=== PATIENT | female | born 1950 | race Hispanic/Latino ===

== ENCOUNTER → 2016-12-09 | Outpatient (CLI) | payer OTHER | LOC: LAB 11:14 | DX: J02.9 Acute pharyngitis, unspecified (principal); H66.003 Acute suppurative otitis media without spontaneous rupture of ear drum, bilateral; J06.9 Acute upper respiratory infection, unspecified | CPT/HCPCS: 99213; G0463 ==

== ENCOUNTER → 2016-12-15 | Outpatient (CLI) | payer OTHER | LOC: MMPC 10:00 | PROVIDERS: ATTEND Physician Assistant | DX: M54.2 Cervicalgia (principal); R51 Headache; M47.812 Spondylosis without myelopathy or radiculopathy, cervical region; M96.0 Pseudarthrosis after fusion or arthrodesis | CPT/HCPCS: 99213; G0463 ==

== ENCOUNTER → 2016-12-22 | Outpatient (CLI) | payer OTHER | LOC: MMPC 10:00 | PROVIDERS: ATTEND Neurological Surgery | DX: M47.813 Spondylosis without myelopathy or radiculopathy, cervicothoracic region (principal); M96.0 Pseudarthrosis after fusion or arthrodesis; M48.06 Spinal stenosis, lumbar region | CPT/HCPCS: 99212; G0463 ==

== ENCOUNTER → 2017-01-06 | Outpatient (CLI) | payer OTHER ==
[2017-01-06 08:48] LABS: HEMATOCRIT 43.3 % (37.0-47.0); HEMOGLOBIN 14.3 g/dL (12.0-16.0); RED BLOOD COUNT 4.93 10^6/uL (4.20-5.40); WHITE BLOOD COUNT 6.14 10^3/uL (4.8-10.8)
[2017-01-06 09:05] LABS: HEMOGLOBIN A1C 10.85 % (4.2-6.0); MEAN BLOOD GLUCOSE (CALC) 275.305 mg/dL
[2017-01-06 09:23] LABS: ASPARTATE AMINO TRANSFERASE 18 IU/L (8-39); BILIRUBIN,TOTAL 0.8 mg/dL (0.3-1.2); BLOOD UREA NITROGEN 28 mg/dL (7-22); BUN/CREATININE RATIO 31.11 (6-20); CALCIUM 10.1 mg/dL (8.7-10.7); CHLORIDE 96 meq/L (98-112); CREATININE 0.9 mg/dL (0.50-1.20); EST GLOMERULAR FILTRATION > 60 (>60 ml/min/1.73m(2)); HDL CHOLESTEROL 36 mg/dL (40-150); POTASSIUM 4.7 meq/L (3.8-5.2); SODIUM 136 meq/L (135-145); TOTAL PROTEIN 7.2 g/dL (6.1-8.0)
[2017-01-06 10:06] LABS: FREE T4 (FREE THYROXINE) 1.44 ng/dL (0.93-1.71)
[2017-01-06 10:15] LABS: BILIRUBIN,URINE NEGATIVE (NEG); GLUCOSE, URINE (UA) 500 mg/dL (NEG); LEUKOCYTE ESTERASE ,URINE NEGATIVE (NEG); NITRATE,URINE NEGATIVE (NEG); OCCULT BLOOD,URINE SMALL (NEG); PROTEIN,URINE 100 mg/dl (NEG); UROBILINOGEN,URINE 0.2 mg/dL (0.2)
[2017-01-06 10:35] LABS: URINE SAMPLE TYPE CLEAN CATCH URINE
[2017-01-06 10:39] LABS: CLARITY,URINE SLIGHTLY CLOUDY (CLEAR); SQUAMOUS EPITHELIAL CELL,UR RARE
[2017-01-06 10:40] LABS: BACTERIA,URINE MODERATE
[2017-01-06 11:00] LABS: GLUCOSE 558 mg/dL (78-110)
[2017-01-06 11:03] LABS: TRIGLYCERIDES 782 mg/dL (44-200)
== END ==
LOC: LAB 08:21
PROVIDERS: ATTEND Family Medicine
DX: E11.9 Type 2 diabetes mellitus without complications (principal); Z79.4 Long term (current) use of insulin; E03.9 Hypothyroidism, unspecified; E78.5 Hyperlipidemia, unspecified; I10 Essential (primary) hypertension; E55.9 Vitamin D deficiency, unspecified; R30.0 Dysuria; N30.00 Acute cystitis without hematuria; G31.84 Mild cognitive impairment of uncertain or unknown etiology; B35.9 Dermatophytosis, unspecified; M54.12 Radiculopathy, cervical region
CPT/HCPCS: 36415; 80053; 80061; 81001; 82306; 83036; 84439; 84443; 85027; 87077; 87088; 87186 ×2; 99213; G0463

== ENCOUNTER → 2017-01-28 | Outpatient (CLI) | payer OTHER | LOC: MMPC 11:15 | PROVIDERS: ATTEND Family Medicine | DX: E11.40 Type 2 diabetes mellitus with diabetic neuropathy, unspecified (principal); I10 Essential (primary) hypertension; E78.5 Hyperlipidemia, unspecified; Z71.3 Dietary counseling and surveillance | CPT/HCPCS: G0108 ==

== ENCOUNTER → 2017-01-29 | Outpatient (CLI) | payer OTHER ==
--- NOTE | 2017-01-31 18:37 | DI ---
XR CXR 2VW PA/LAT,01/29/2017 5:37 PM: Clinical History: Upper respiratory infection. Previous Exam: July 17, 2014 Findings: PA and lateral views of the chest are obtained, and demonstrate some increased interstitial markings in the perihilar region. Postsurgical changes are seen consistent with screw and plate fixation of the cervical spine. There is no infiltrate nor effusion. The cardiomediastinum and bony thorax are unremarkable. Impression: Mild increased interstitial markings most consistent with a viral illness versus reactive airways dis ease.
== END ==
LOC: RAD 17:40
PROVIDERS: ATTEND Physician Assistant
DX: J06.9 Acute upper respiratory infection, unspecified (principal)
CPT/HCPCS: 71020

== ENCOUNTER → 2017-02-09 | Outpatient (CLI) | payer OTHER ==
--- NOTE | 2017-02-09 17:27 | DI ---
MRI LUMBAR SPINE W/O CN,02/09/2017 2:20 PM: Clinical History: Spinal stenosis Previous Exam: None at this facility. Findings: Multiplanar MR images are obtained through the lumbar spine without contrast. Bony alignment is anatomic. No fractures are seen. Marrow signal is preserved. There is a hemangioma noted involving the superior endplate of the 11th thoracic vertebral body. There is some transitional anatomy with partial lumbarization of the first sacral vertebral body with a pseudoarticulation on t he left. Alignment is anatomic and no fractures are seen. There is facet arthropathy noted. The paravertebral soft tissues are unremarkable. There is a subcentimeter simple cyst noted within th e left kidney. The major vascular flow voids are unremarkable. Individual intervertebral disc spaces: L1/2: There is a broad-based disc bulge with some facet and ligamentum flavum hypertrophy without sig nificant stenosis. L2/3: There is disc desiccation and a broad-based disc bulge with some facet and ligamentum flavum hy pertrophy without significant central canal stenosis and only mild left neural foraminal narrowing. L3/4: There is disc desiccation, annular fissuring and a broad-based disc bulge combining with facet and ligamentum flavum hypertrophy to cause moderate central canal stenosis. There is also some epidur al lipomatosis contributing to the moderate central canal stenosis. There is moderate left and mild r ight neuroforaminal narrowing. L4/5: There is disc desiccation, annular fissuring and a large broad-based disc bulge combining with facet and ligamentum flavum hypertrophy to cause severe central canal stenosis with moderate to sever e right and moderate left lateral recess stenosis. L5/S1: There is grade 1 anterolisthesis of L5 on S1 with facet and ligamentum flavum hypertrophy cont ributing to severe right lateral recess stenosis and no significant left lateral recess stenosis. S1/S2: There is partial lumbarization at this level. There is a broad-based disc bulge and some facet hypertrophy. This contributes to moderate to severe right lateral recess stenosis. Impression: Multilevel disease worst at L4/5 where there is severe central canal stenosis with moderate to severe right and moderate left lateral recess stenosis. Severe right lateral recess stenosis at L5/S1. Moderate to severe right lateral recess stenosis at S1/S2
== END ==
LOC: MRI 14:09
PROVIDERS: ATTEND Physician Assistant
DX: M48.06 Spinal stenosis, lumbar region (principal); M51.16 Intervertebral disc disorders with radiculopathy, lumbar region; M48.07 Spinal stenosis, lumbosacral region
CPT/HCPCS: 72148

== ENCOUNTER → 2017-02-10 | Outpatient (CLI) | payer OTHER | LOC: MMPC 09:00 | PROVIDERS: ATTEND Family Medicine | DX: E11.9 Type 2 diabetes mellitus without complications (principal); F32.9 Major depressive disorder, single episode, unspecified; M54.12 Radiculopathy, cervical region; G60.8 Other hereditary and idiopathic neuropathies; B37.0 Candidal stomatitis ==

== ENCOUNTER 2017-02-20 23:28 | Emergency (ER) | payer OTHER ==
[2017-02-20] MEDS ORDERED: NORMAL SALINE 10 ML SYRINGE FLUSH IVP PRN (23:42)
--- NOTE | 2017-02-20 23:48 | PDOC ---
General Adult HPI - General Chief Complaint: General Medical Stated Complaint: HIGH GLUOSE Date Seen by Provider: 02/20/17 Time Seen by Provider: 23:46 Source: POSITIVE: Patient, Other (family) Exam Limitations: POSITIVE: No limitations Nurse's Notes Reviewed & Considered: Yes - History of Present Illness Initial Comment: And is a 66-year-old female who presents to the emergency department with hyperglycemia and confusion. History is obtained from patient and family. They report that she's had high blood sugars over the last week. Up into the 500s. Patient takes a long-acting insulin twice a day and then short acting insulin once a day. Patient indicates she has had some urinary frequency. Denies any urgency or dysuria. Patient has had intermittent exertional dyspnea but she is uncertain how long that has been present. Patient denies any fernando abdominal pain. Patient denies chest pain. She has had a mild cough. Patient for treatment treated for some type of upper respiratory tract infection with antibiotics recently within the last 1-2 weeks. No diarrhea. Patient denies missing any doses of her insulin. Family indicated that earlier today she thought she was in [place] and seems to be confused. Have you received a tetanus shot in the past 10 years?: Unknown - Patient Home Medications Home Medications: Home Medications Aspirin 81 mg ORAL QD tab 07/16/11 Levothyroxine Sodium 1 tab PO DAILY #90 tab 03/02/16 Duloxetine HCl [Cymbalta] 120 mg ORAL QD #60 capsule 06/01/16 Esomeprazole Magnesium [Nexium] 1 tab-cap PO DAILY #30 cap 06/01/16 Ezetimibe [Zetia] 10 mg PO DAILY #30 tab 06/01/16 Metformin HCl 1 tab PO BID #60 tab 06/01/16 Potassium Chloride 1 cap PO QD #30 cap 06/01/16 Insulin Aspart [Novolog] 18 unit SQ Q AC #1 vial 10/01/16 Fluticasone Propionate [Flonase Allergy Relief] 2 spr ANTHONY DAILY spr 11/10/16 Oxycodone HCl/Acetaminophen [Oxycodone-Acetaminophen 5-325] 1 tab PO Q4-6H #120 tab 11/10/16 Cetirizine HCl [Zyrtec] 10 mg ORAL QD #30 tab 12/07/16 [place], Insulin Disposable [Pen Needle] 1 each MC QID #1 box 12/07/16 Cyclobenzaprine HCl 1 tab PO TID #60 tab 12/15/16 Ergocalciferol (Vitamin D2) [Vitamin D2] 1 cap PO 2XW #16 cap 01/06/17 Insulin Glargine SoloStar Inj [Lantus Solostar Inj] 80 unit SQ QHS #1 box Pravastatin Sodium [Pravachol] 1 tab PO DAILY #90 tab 01/06/17 Blood Sugar Diagnostic [Freestyle Lite Strips] 1 each IN TID #100 strip Albuterol Sulfate [Proair Hfa] 1 - 2 puff INH Q4-6H #1 inhaler 01/29/17 Fluconazole [Diflucan] 100 mg PO DAILY #5 tab 02/10/17 Gabapentin 1 cap PO TID #90 cap 02/10/17 Oxycodone HCl/Acetaminophen [Oxycodone-Acetaminophen 5-325] 1 tab PO Q6H #120 tab 02/10/17 - Patient Allergies Allergies/Adverse Reactions: Allergies Allergy/AdvReac Type Severity Reaction Status Date / Time codeine AdvReac NAUSEA Unverified 01/06/17 13:37 Past Medical History - heen HEENT History: Dentures/Partials Additional HEENT History: Wears trifocals, wears upper dentures, lower dentures need to be refitted. Cardiovascular History: Hypertension, Hyperlipidemia Additional Cardiovasular History: SOB-ON OXYGEN AT NIGHT AND SOMETIMES IN DAYTIME WHEN TIRED Respiratory History: Asthma, Home Oxygen Use, Home CPAP Use Additional Respiratory History: OXYGEN AT NIGHT WITH CPAP Gastrointestinal History: GERD Genitourinary History: Recurrent UTI Endocrine History: Type 2 Diabetes (insulin), Hypothyroidism Musculoskeletal History: Denies History, Back Pain Prosthesis or Implant: Yes ([facility] BILAT) Additional Musculoskeletal History: neck surgery 07-12-14 Neurological History: TIA, Frequent Headaches Additional Neurological History: reports chronic peripheral neuropathy in feet. SALAZAR AFTER NECK SURGERY Blood Disorders: Denies History Psychiatric History: Depression, Anxiety Disorders History of Sexually Transmitted Diseases: No Cancer History: Denies History History of MDRO: No History of Other Communicable Diseases: No Alcohol Use: None Substance Use Type: None Previous Surgical History: Yes Type / Date of Surgery: BILAT EYE SURGERY RETNIA , DENTAL EXTRACTION, PARTIAL HYSTERECTOMY, TONSILLECTOMY, APPENDECTOMY, CHOLECYSTECTOMY, CERVICAL FUSION 06/28 , LEFT CTR, BILAT CATARACTS, LEFT GANGLION CYST HAND, Anesthesia Reactions: No Malignant Hyperthermia: No Significant Family History: Asthma, Heart disease, Cancer, Diabetes, Lung disease Past Medical History Reviewed: Reviewed - No Changes ROS - Limitations ROS Limitations: No Limitations Constitution: REPORTS: Denies Symptoms Cardiovascular: REPORTS: Denies Cardiac Symptoms Respiratory: REPORTS: Cough Non Productive, Shortness Of Breath Neurological: REPORTS: Confusion Gastrointestinal: DENIES: Abdominal Pain Endocrine: REPORTS: Denies Symptoms Musculoskeletal: REPORTS: Other (Chronic back pain) Genitourinary: REPORTS: Other (Frequency). DENIES: Dysuria, Hematuria Eyes: REPORTS: Denies Symptoms ENT: REPORTS: Denies Symptoms Skin: REPORTS: Denies Skin Symptoms Psychiatric: POSITIVE: Denies Psych Symptoms General Adult Exam - General Appearance General Appearance: POSITIVE: Alert, Cooperative, No Acute Distress, No Evidence of Trauma - HEENT HEENT: POSITIVE: Head Inspection Nml, Eyes Inspection Nml, Oral/Dental Inspect. Nml, PERRL - Pupils Pupil Size: 4 mm: Bilateral - Neck Neck: POSITIVE: Normal Inspection. NEGATIVE: Lymphadenopathy - Respiratory Respiratory: POSITIVE: No Respiratory Distress, Breath Sounds Normal, Chest Non- Tender. NEGATIVE: Wheezes, Rales, Rhonchi - Cardiovascular Cardiovascular: POSITIVE: Regular Rate & Rhythm, No Murmur, No Gallop - Abdomen Additional Abdominal Details: Minimal diffuse tenderness to palpation. No focality. Decreased bowel sounds. No distention. - Back Back: POSITIVE: Normal Inspection - Skin Skin: POSITIVE: Normal Color, Warm, Dry - Extremities Extremity: Non-Tender: (All Extremities), Normal ROM: (All Extremities), Normal Inspection: (All Extremities) Additional Extremities Details: No edema. Palpable DP and posterior tibial pulses. - Neurological / Psychological Neurological: POSITIVE: Affect Apporpriate, Motor Normal, Sensation Normal General Adult Progress - Results Reviewed by me Xrays/CTs/US Reviewed by me: Yes Lab Results Reviewed: Yes Lab Results:: Laboratory Results 02/20/17 02/20/17 02/21/17 Range/Units 23:42 23:56 01:10 WBC 6.36 (4.8-10.8) 10^3/uL RBC 4.44 (4.20-5.40) 10^6/uL Hgb 12.9 (12.0-16.0) g/dL Hct 39.4 (37.0-47.0) % MCV 88.7 (81-99) FL MCH 29.1 (27-31) PG MCHC 32.7 L (33-37) g/dL RDW Std Deviation 42.8 (39-50) fL RDW Coeff of Nicole 13.4 (11.5-14.5) % Plt Count 268 (140-350) 10*3/uL MPV 9.7 (7.4-12.2) FL Immature Gran % (Auto) 0.3 (0-5) % Neut % (Auto) 59.5 (50-80) % Lymph % (Auto) 28.8 (10-50) % [place] % (Auto) 6.6 (5-15) % Eos % (Auto) 4.2 (0-8) % Baso % (Auto) 0.6 (0-1) % Immature Gran # (Auto) 0.02 10*3/UL Neut # (Auto) 3.78 10*3/UL Lymph # (Auto) 1.83 10*3/uL [place] # (Auto) 0.42 (0.3-0.8) 10*3/UL Eos # (Auto) 0.27 10*3/UL Baso # (Auto) 0.04 10*3/UL WBC Morphology Comment Normal morphology (NORM) Plt Morphology Comment Normal morphology (NORM) RBC Morph Comment Normal morphology (NORM) VBG pH 7.43 H (7.32-7.42) VBG pCO2 38.8 L (45-55) mmHg VBG HCO3 25.8 (22-26) mmol/L VBG Base Excess -2 (-2-2) MMOL/L Sodium 135 (135-145) meq/L Potassium 4.5 (3.8-5.2) meq/L Chloride 98 (98-112) meq/L Carbon Dioxide 26 (23-33) meq/L Anion Gap 11 (5-20) BUN 25 H (7-22) mg/dL Creatinine 0.8 (0.50-1.20) mg/dL Estimated GFR > 60 (>60 ml/min/1.73m(2)) BUN/Creatinine Ratio 31.25 H (6-20) Glucose 393 H (78-110) mg/dL Calculated Osmolality 299.0 H (267-292) mOsm/kg Calcium 9.1 (8.7-10.7) mg/dL Total Bilirubin 0.4 (0.3-1.2) mg/dL AST 17 (8-39) IU/L ALT 18 (9-52) IU/L Alkaline Phosphatase 112 (38-126) IU/L Troponin I < 0.012 (< 0.040) ng/mL Total Protein 6.8 (6.1-8.0) g/dL Albumin 3.6 (3.5-4.8) g/dL Globulin 3.2 (2.50-4.10) g/dL Albumin/Globulin Ratio 1.10 L (1.3-2.0) mg/g Lipase 172 (23-300) IU/L Ur Collection Type Clean catch urine Urine Color Yellow Urine Clarity Cloudy (CLEAR) Urine pH 6.0 (5.0-8.5) Ur Specific [place] 1.010 (1.005-1.030) Urine Protein 30 (NEG) mg/dl Urine Glucose (UA) 500 (NEG) mg/dL Urine Ketones Negative (NEG) Urine Occult Blood Trace-intact (NEG) Urine Nitrate Negative (NEG) Urine Bilirubin Negative (NEG) Urine Urobilinogen 0.2 (0.2) mg/dL Ur Leukocyte Esterase Negative (NEG) Urine RBC 1-3 (NONE) /hpf Urine WBC 1-3 (NONE) Ur Squamous Epith Cells Rare (NONE) Ur Renal Epithelial Cell None (NONE) Urine Crystals None Urine Bacteria Rare (NONE) Urine Casts None Urine Mucus None (NONE) Urine Trichomonas None (NONE) Urine Yeast None (NONE) Acetone Level Negative (NEGATIVE) EKG Interpreted/Reviewed By Me:: Yes (sinus rhythm. Old Q waves noted. No acute ST changes) - Patient's Progress MDM / ED Course: And is a 66-year-old female who presents to the emergency department with hyperglycemia and confusion. Her vital signs are unremarkable and examination him strict well-appearing female in no acute distress. Differential diagnosis includes Acute Hyperglycemia, Hypoglycemia Ketosis, DKA, Urinary Tract Infection , ACS, Pneumonia. Patient's chemistry panel does demonstrate hyperglycemia. There is no evidence of acute acidosis. Her acetone is negative. Urinalysis is without evidence of infection. EKG and troponin are negative making ACS less likely. Chest x-ray does not demonstrate any significant acute findings. She does have Borderline cardiomegaly. Patient was given a 5 unit subcutaneous injection of insulin and a bolus of normal saline. Reevaluation she is feeling much better and her sugars were trending down. Patient's hemoglobin A1c was elevated suggesting she is not having good glycemic control at home. Currently patient does not appear to be confused. I did discuss with patient whether she prefers to be admitted to the hospital for observation or if she felt comfortable going home. Patient does feel comfortable going home and requests to be discharged at this time. Patient Care Time - Estimated PCT Patient Care Time (In Minutes): 45 Vital Signs - VS Reviewed Vital Signs Reviewed: Yes Discharge Clinical Impression: Hyperglycemia without ketosis Discharge Disposition: Discharged to Home Condition: Good Patient Instructions Given at Discharge: Type 2 Diabetes in Adults (ED) Additional Instructions: Thank you for coming to the emergency department. Please follow-up with your primary care provider for reevaluation of your insulin regimen. Please return to the emergency department for any worsening symptoms.
[2017-02-21 00:08] LABS: BASOPHILS # (AUTO) 0.04 10*3/UL; BASOPHILS % (AUTO) 0.6 % (0-1); EOSINOPHILS # (AUTO) 0.27 10*3/UL; EOSINOPHILS % (AUTO) 4.2 % (0-8); HEMATOCRIT 39.4 % (37.0-47.0); HEMOGLOBIN 12.9 g/dL (12.0-16.0); LYMPHOCYTES # (AUTO) 1.83 10*3/uL; MEAN CORPUSCULAR HEMOGLOBIN 29.1 PG (27-31); MEAN CORPUSCULAR HGB CONC 32.7 g/dL (33-37); MEAN CORPUSCULAR VOLUME 88.7 FL (81-99); MEAN PLATELET VOLUME 9.7 FL (7.4-12.2); MONOCYTES # (AUTO) 0.42 10*3/UL (0.3-0.8); MONOCYTES % (AUTO) 6.6 % (5-15); NEUTROPHILS # (AUTO) 3.78 10*3/UL; NEUTROPHILS % (AUTO) 59.5 % (50-80); RED BLOOD COUNT 4.44 10^6/uL (4.20-5.40)
[2017-02-21 00:09] LABS: BLOOD UREA NITROGEN 25 mg/dL (7-22); BUN/CREATININE RATIO 31.25 (6-20); CALCIUM 9.1 mg/dL (8.7-10.7); EST GLOMERULAR FILTRATION > 60 (>60 ml/min/1.73m(2)); LIPASE 172 IU/L (23-300); SERUM ALBUMIN 3.6 g/dL (3.5-4.8)
[2017-02-21 00:10] LABS: PLATELET MORPHOLOGY COMMENT NORMAL MORPHOLOGY (NORM); RBC MORPHOLOGY COMMENT NORMAL MORPHOLOGY (NORM); WBC MORPHOLOGY COMMENT NORMAL MORPHOLOGY (NORM)
[2017-02-21 00:12] LABS: VENOUS PCO2 38.8 mmHg (45-55); VENOUS PH 7.43 (7.32-7.42)
[2017-02-21] MEDS ORDERED: Sodium Chloride 0.9% 1,000 ML PRIMARY IV ONE (00:29)
[2017-02-21] MEDS ORDERED: Insulin Lispro Flexpen 300 UNIT/3 ML INSULN.PEN SUBCUT ONE (00:29)
--- NOTE | 2017-02-21 00:45 | DI ---
HISTORY: Hypoxia. History of upper respiratory infection. TECHNIQUE: A single portable frontal view of the chest is submitted. COMPARISON: Comparison is made to a PA/Lat chest radiograph dated 01/29/2017. FINDINGS: The lungs are clear with no effusion, consolidation, or pneumothorax. Heart size is at the upper limits of normal with mildly increased pulmonary vasculature that may repr esent technique versus early pulmonary edema in the setting of CHF. Degenerative changes of the right AC joint and spine are noted. Surgical hardware projects over the c ervicothoracic junction. IMPRESSION: 1. Borderline cardiomegaly with mildly increased pulmonary vasculature. The findings may represent technique versus early pulmonary edema in the setting of congestive heart failure. 2. No effusion, consolidation, or pneumothorax.
[2017-02-21 01:41] LABS: BILIRUBIN,URINE NEGATIVE (NEG); COLOR,URINE YELLOW; GLUCOSE, URINE (UA) 500 mg/dL (NEG); NITRATE,URINE NEGATIVE (NEG); OCCULT BLOOD,URINE Trace-intact (NEG); PROTEIN,URINE 30 mg/dl (NEG); UROBILINOGEN,URINE 0.2 mg/dL (0.2)
[2017-02-21 01:48] LABS: CLARITY,URINE CLOUDY (CLEAR)
[2017-02-21 01:49] LABS: BACTERIA,URINE RARE; SQUAMOUS EPITHELIAL CELL,UR RARE; URINE SAMPLE TYPE CLEAN CATCH URINE
[2017-02-21 05:21] VITALS: RESP 18; TEMP 97.6
--- NOTE | 2017-02-21 06:06 | EKG ---
[address] [address] Measurements Intervals [place] Rate: 89 P: 53 NC: 147 QRS: -15 QRSD: 87 T: 80 QT: 353 QTc: 400 Interpretive Statements SINUS RHYTHM POSSIBLE INFERIOR MYOCARDIAL INFARCTION [40+ ms Q WAVE AND/OR ST/T ABNORMALITY IN II/aVF], PROBABLY OLD Compared to ECG 07/09/2016 12:09:13 Myocardial infarct finding now present Electronically Signed On 02-22-17 08:58:29 MDT by Tanmay Bernal MD [id number]
== END 2017-02-21 02:10 | disposition home or self-care (01) ==
LOC: ER 23:28
DX: E11.65 Type 2 diabetes mellitus with hyperglycemia (principal); Z79.4 Long term (current) use of insulin; R35.0 Frequency of micturition; R05 Cough; R06.02 Shortness of breath
CPT/HCPCS: 36415; 71010; 80053; 81001; 82009; 82010; 82803; 83690; 84484; 85025; 93005; 93010; 96360; 96372; 99283 ×2; J1815; J7030

== ENCOUNTER → 2017-02-25 | Outpatient (CLI) | payer OTHER | LOC: MMPC 09:00 | PROVIDERS: ATTEND Family Medicine | DX: E11.40 Type 2 diabetes mellitus with diabetic neuropathy, unspecified (principal); I10 Essential (primary) hypertension; E78.5 Hyperlipidemia, unspecified; Z71.3 Dietary counseling and surveillance | CPT/HCPCS: G0108 ==

== ENCOUNTER → 2017-03-12 | Outpatient (CLI) | payer OTHER | LOC: MMPC 09:00 | PROVIDERS: ATTEND Family Medicine | DX: M54.12 Radiculopathy, cervical region (principal); G60.8 Other hereditary and idiopathic neuropathies; F32.9 Major depressive disorder, single episode, unspecified; E11.9 Type 2 diabetes mellitus without complications | CPT/HCPCS: 99214; G0463 ==

== ENCOUNTER → 2017-03-25 | Outpatient (CLI) | payer OTHER | LOC: MMPC 09:00 | PROVIDERS: ATTEND Family Medicine | DX: E11.319 Type 2 diabetes mellitus with unspecified diabetic retinopathy without macular edema (principal); I10 Essential (primary) hypertension; Z71.3 Dietary counseling and surveillance | CPT/HCPCS: G0108 ==

== ENCOUNTER → 2017-04-05 | Outpatient (CLI) | payer OTHER | LOC: MMPC 09:00 | PROVIDERS: ATTEND Family Medicine | DX: E11.9 Type 2 diabetes mellitus without complications (principal); K59.03 Drug induced constipation; I10 Essential (primary) hypertension; M54.12 Radiculopathy, cervical region | CPT/HCPCS: 99214; G0463 ==

== ENCOUNTER → 2017-04-21 | Outpatient (CLI) | payer OTHER ==
[2017-04-21 10:00] LABS: HEMOGLOBIN A1C 7.29 % (4.2-6.0)
[2017-04-21 10:03] LABS: CALCIUM 9.5 mg/dL (8.7-10.7); CHOL/HDL RATIO 6.05 RATIO (0-4.0); LDL CHOLESTEROL,CALCULATED 124.8 mg/dL; SERUM ALBUMIN 4.1 g/dL (3.5-4.8)
[2017-04-21 10:50] LABS: FREE T4 (FREE THYROXINE) 1.22 ng/dL (0.93-1.71)
== END ==
LOC: LAB 09:39
PROVIDERS: ATTEND Family Medicine
DX: E11.9 Type 2 diabetes mellitus without complications (principal); Z79.4 Long term (current) use of insulin; I10 Essential (primary) hypertension; E03.9 Hypothyroidism, unspecified; E78.5 Hyperlipidemia, unspecified; G60.8 Other hereditary and idiopathic neuropathies; J30.9 Allergic rhinitis, unspecified; M54.12 Radiculopathy, cervical region; R41.89 Other symptoms and signs involving cognitive functions and awareness; E55.9 Vitamin D deficiency, unspecified; Z86.73 Personal history of transient ischemic attack (TIA), and cerebral infarction without residual deficits
CPT/HCPCS: 36415; 80053; 80061; 82306; 83036; 84439; 84443

== ENCOUNTER → 2017-05-05 | Outpatient (CLI) | payer OTHER | LOC: MMPC 09:00 | PROVIDERS: ATTEND Family Medicine | DX: E11.9 Type 2 diabetes mellitus without complications (principal); R10.12 Left upper quadrant pain; R10.11 Right upper quadrant pain; E03.9 Hypothyroidism, unspecified; E55.9 Vitamin D deficiency, unspecified; L82.1 Other seborrheic keratosis | CPT/HCPCS: 99214; G0463 ==

== ENCOUNTER → 2017-05-13 | Outpatient (CLI) | payer OTHER ==
--- NOTE | 2017-05-13 14:33 | DI ---
CT ABD W/CN AND PELVIS W/CN,05/13/2017 12:51 PM: Clinical History: Left upper quadrant pain. Previous Exam: None at this facility. Findings: Multiple helically acquired CT images are obtained through the abdomen and pelvis following the intra venous administration of contrast. The urinary bladder is unremarkable. There is no free fluid. The appendix is normal. The kidneys, adrenals, liver, spleen and pancreas are unremarkable. There is a moderate amount of stool seen throughout the colon. The stomach is decompressed and not well evaluated, but grossly normal. There are a few subcentimeter hypodensities within the kidneys which are too small to characterize. Anterior abdominal wall is unremarkable. The subcutaneous fat is also unremarkable. Impression: No acute intra-abdominal pathology.
== END ==
LOC: CT 12:44
PROVIDERS: ATTEND Family Medicine
DX: R10.12 Left upper quadrant pain (principal)
CPT/HCPCS: 74177

== ENCOUNTER → 2017-05-14 | Outpatient (CLI) | payer OTHER ==
[2017-05-14 13:52] LABS: BLOOD UREA NITROGEN 23 mg/dL (7-22); BUN/CREATININE RATIO 25.55 (6-20); CALCIUM 9.7 mg/dL (8.7-10.7); EST GLOMERULAR FILTRATION > 60 (>60 ml/min/1.73m(2))
== END ==
LOC: LAB 13:29
PROVIDERS: ATTEND Family Medicine
DX: E11.9 Type 2 diabetes mellitus without complications (principal); Z79.4 Long term (current) use of insulin
CPT/HCPCS: 36415; 80048

== ENCOUNTER → 2017-06-07 | Outpatient (CLI) | payer OTHER | LOC: MMPC 09:00 | PROVIDERS: ATTEND Family Medicine | DX: B37.89 Other sites of candidiasis (principal); E11.9 Type 2 diabetes mellitus without complications; G31.84 Mild cognitive impairment of uncertain or unknown etiology; I10 Essential (primary) hypertension; F32.9 Major depressive disorder, single episode, unspecified; M54.12 Radiculopathy, cervical region; B35.9 Dermatophytosis, unspecified | CPT/HCPCS: 99213; G0463 ==

== ENCOUNTER → 2017-06-15 | Outpatient (CLI) | payer OTHER ==
--- NOTE | 2017-06-15 16:30 | DI ---
CT CERVICAL SPINE W/O CONTRAST,06/15/2017 3:26 PM: Clinical History: Status post fall Previous Exam: March 17, 2016 Findings: Multiple helically acquired CT images are obtained through the cervical spine without contrast. Sagit hollie and coronal reconstructions are obtained, and demonstrate postsurgical changes consistent with an terior screw and plate fixation of C4-C7. There is also interbody fusion. This is unchanged from the prior exam. There are uncovertebral joint osteophytes noted and there are some mild loss of intervertebral disc h eight. No fracture is identified. The lung apices are clear. Impression: Diffuse degenerative changes of the cervical spine without fractures.
--- NOTE | 2017-06-15 16:30 | DI ---
CT HEAD W/O CONTRAST,06/15/2017 3:26 PM: Clinical History: Fall. Previous Exam: June 29, 2015 Findings: Multiple helically acquired CT images are obtained through the brain without contrast, and demonstrat e normal, symmetric ventricles and other CSF containing spaces. There is no mass, hemorrhage or midli ne shift. Impression: No acute intracranial pathology.
--- NOTE | 2017-06-15 16:30 | DI ---
XR L-SPINE 2-3 VW,06/15/2017 3:28 PM: Clinical History: Status post fall Previous Exam: February 20, 2016 Findings: 3 views of the lumbar spine are obtained, and demonstrate grade 1 anterolisthesis of L4 on L5. There is mild loss of intervertebral disc height. Endplate osteophytes are noted. Facet hypertrophy is also noted. Patient is status post cholecystectomy on the right. A large amount of dried stool is seen throughout the colon. A few phleboliths are also noted. Impression: Diffuse degenerative changes of the lumbar spine without fractures.
== END ==
LOC: RAD 15:21
PROVIDERS: ATTEND Physician Assistant
DX: M54.2 Cervicalgia (principal); M54.5 Low back pain; R51 Headache; M47.816 Spondylosis without myelopathy or radiculopathy, lumbar region; M47.812 Spondylosis without myelopathy or radiculopathy, cervical region; W07.XXXA Fall from chair, initial encounter
CPT/HCPCS: 70450; 72100; 72125

== ENCOUNTER → 2017-06-22 | Outpatient (CLI) | payer OTHER ==
--- NOTE | 2017-06-22 12:26 | DI ---
XR RIBS W/PA CXR MIN 3VW,06/22/2017 10:40 AM: Clinical History: Left-sided chest wall pain Previous Exam: February 21, 2017 Findings: Multiple views of the left ribs are obtained, and demonstrate normal anatomic alignment. There is no evidence of pneumothorax. There is no pleural effusion. Degenerative changes of the thoracic spine ar e seen. There is screw and plate fixation of the cervical spine. Mild degenerative hypertrophy of the acromioclavicular joint are seen. Impression: No fracture.
[2017-06-22 12:46] LABS: FREE T4 (FREE THYROXINE) 1.09 ng/dL (0.93-1.71)
--- NOTE | 2017-06-22 13:27 | DI ---
CT ABD W/CN AND PELVIS W/CN,06/22/2017 11:47 AM: Clinical History: Abdominal pain. Previous Exam: May 13, 2017 Findings: Multiple helically acquired CT images are obtained through the abdomen and pelvis following the intra venous administration of contrast, and demonstrate clear lung bases. Degenerative changes of the lumbar spine are seen. The liver, spleen, adrenals, pancreas and kidneys are unremarkable. Patient is status post cholecystectomy. There is no free air nor free fluid. A few peripheral vascular calcifications are noted. There are some centimeter hypodensities within th e kidneys too small to characterize. Facet arthropathy is also noted. Moderate stool seen throughout the entire colon. Impression: No acute intra-abdominal pathology.
== END ==
LOC: MOB RAD 10:42
PROVIDERS: ATTEND Physician Assistant
DX: R07.89 Other chest pain (principal); R10.12 Left upper quadrant pain; R10.13 Epigastric pain; E03.9 Hypothyroidism, unspecified; E55.9 Vitamin D deficiency, unspecified; M79.1 Myalgia; W10.9XXA Fall (on) (from) unspecified stairs and steps, initial encounter
CPT/HCPCS: 36415; 71101; 74177; 82306; 82565; 84439; 84443; 84520

== ENCOUNTER 2018-07-29 16:27 | Inpatient (IN) ==
[2018-07-29 15:32] LABS: VENOUS PH 7.42 (7.32-7.42)
[2018-07-29 15:45] LABS: BASOPHILS # (AUTO) 0.03 10*3/UL; BASOPHILS % (AUTO) 0.5 % (0-1); EOSINOPHILS # (AUTO) 0.33 10*3/UL; EOSINOPHILS % (AUTO) 5.6 % (0-8); Hematocrit [HCT] 40.2 % (37.0-47.0); Hemoglobin [HGB] 13.5 g/dL (12.0-16.0); LYMPHOCYTES # (AUTO) 1.59 10*3/uL; MEAN CORPUSCULAR HEMOGLOBIN 29.2 PG (27-31); MEAN CORPUSCULAR HGB CONC 33.6 g/dL (33-37); MEAN CORPUSCULAR VOLUME 86.8 FL (81-99); MEAN PLATELET VOLUME 9.9 FL (7.4-12.2); MONOCYTES # (AUTO) 0.39 10*3/UL (0.3-0.8); MONOCYTES % (AUTO) 6.6 % (5-15); NEUTROPHILS # (AUTO) 3.54 10*3/UL; NEUTROPHILS % (AUTO) 60.1 % (50-80); RED BLOOD COUNT 4.63 10^6/uL (4.20-5.40)
[2018-07-29 15:48] LABS: PLATELET MORPHOLOGY COMMENT NORMAL MORPHOLOGY (NORM); RBC MORPHOLOGY COMMENT NORMAL MORPHOLOGY (NORM); WBC MORPHOLOGY COMMENT NORMAL MORPHOLOGY (NORM)
[2018-07-29 15:59] LABS: BLOOD UREA NITROGEN 41 mg/dL (7-22); BUN/CREATININE RATIO 37.27 (6-20); SERUM ALBUMIN 3.9 g/dL (3.5-4.8)
[~2018-07-29 16:27] MED LIST: Sodium Chloride 0.9% 1,000 ML PRIMARY IV ONE
--- NOTE | 2018-07-29 17:24 | DI ---
CT ANGIOGRAM OF THE CHEST, 07/29/2018 4:12 PM : Clinical History: Dyspnea. Cough. Elevated D-dimer test. Previous Exam: 07/15/2014. Scans are performed from the base of the neck to the lower lung bases with IV contrast. 60 mL of Isov ue 370 was injected IV. Proprietary automated bolus tracking software was not used to verify the leodan ng of the injection. The base of the neck and thoracic inlet are normal. There are no abnormal axillary, supraclavicular, mediastinal, or hilar nodes. The heart is normal. There are a few scattered calcifications in the LAD and left circumflex artery. The pulmonary arteries are normal. There is no pulmonary arterial hypert ension. There is no evidence of pulmonary embolism or pulmonary infarction. There is discoid atelecta sis in the right middle lobe. No acute infiltrate or effusion is present. The visualized portions of the adrenal glands, spleen, pancreas, and liver are normal. READIN. Normal CTA of the chest. There are no pulmonary emboli or pulmonary infarcts. 2. There is no acute infiltrate or effusion.
[2018-07-29] MEDS ORDERED: cefTRIAXone Inj 1 GM in Sodium Chloride 0.9% 100 ML IV ONE (18:14)
[2018-07-29 18:28] LABS: URINE SAMPLE TYPE CLEAN CATCH URINE
[2018-07-29 18:29] LABS: BACTERIA,URINE RARE
--- NOTE | 2018-07-29 18:41 | PDOC ---
General Adult HPI - General Chief Complaint: Chest Pain Stated Complaint: chest tightness Date Seen by Provider: 07/29/18 Time Seen by Provider: 17:05 Source: POSITIVE: Patient, EMS Exam Limitations: POSITIVE: No limitations Nurse's Notes Reviewed & Considered: Yes EMS Report Reviewed & Considered: Verbal - History of Present Illness Initial Comment: The patient is a 68-year-old female who presents to the emergency department by ambulance from the walk-in clinic with complaints of productive cough, confusion and general malaise. She reports that for the past month or so she's had increased urinary frequency and dysuria. For the past several days she's had increase in productive cough which is productive of greenish colored sputum. She also has some increase shortness of breath and tightness in her chest especially with coughing. She had presented initially to the walk-in clinic where her oxygen saturations were in the 80s on room air. She was placed on O2 per nasal cannula. EKG done in the clinic shows no acute ST segment changes or T-wave inversions and is a sinus rhythm. The patient is unaware that she has had any fever. She does have general malaise and chills. She is also diabetic and her bedside blood sugar was above 350. She states that she does wear oxygen and CPAP at night however during the day she does not typically require oxygen. She does have an inhaler at home which she uses infrequently. Have you received a tetanus shot in the past 10 years?: Yes - Patient Home Medications Home Medications: Home Medications Cetirizine HCl [Zyrtec] 10 mg ORAL QD #30 tab 12/07/16 Pen Needle, Diabetic [Pen Needle] 1 [facility] QID #1 box 12/07/16 Fluticasone Propionate [Flonase Allergy Relief] 2 spr ANTHONY DAILY #1 spr Cholecalciferol (Vitamin D3) [Vitamin D3] 1 cap PO QD #30 cap 06/07/17 Oxycodone HCl/Acetaminophen [Oxycodone-Acetaminophen 5-325] 1 tab PO Q6H #120 tab 06/07/17 aspirin 81 mg tablet,delayed release 81 mg PO QDAY tab 08/03/17 cyclobenzaprine 10 mg tablet 10 mg PO TID #60 tab 08/11/17 albuterol sulfate HFA 90 mcg/actuation aerosol inhaler 2 puff INH Q4-6H PRN #2 device 09/20/17 polyethylene glycol 3350 17 gram oral powder packet 17 g PO QDAY #30 ea insulin aspart U-100 100 unit/mL subcutaneous solution 5 unit SUBCUT TIDWM #1 vial 01/28/18 blood sugar diagnostic strips 1 strip MISCELLANEOUS TID #100 strip 02/01/18 pravastatin 80 mg tablet 1 tab PO DAILY #90 tab 04/04/18 dulaglutide 0.75 mg/0.5 mL subcutaneous pen injector 0.75 mg SUBCUT WEEKLY #2 ml 04/13/18 levothyroxine 200 mcg tablet 200 mcg PO QDAY #30 tab 04/13/18 lisinopril 10 mg tablet 10 mg PO QDAY #30 tab 04/13/18 metronidazole 0.75 % topical gel 1 applic TOPICAL BID #45 g 04/13/18 nystatin 100,000 unit/gram topical powder 1 applic TOPICAL TID #1 ea 04/13/18 metoprolol tartrate 25 mg tablet 25 mg PO BID 05/06/18 ergocalciferol (vitamin D2) 50,000 unit capsule 1 unit PO 2xw #16 unit 06/06/18 Tresiba FlexTouch U-100 insulin 100 unit/mL (3 mL) subcutaneous pen 45 unit SUBCUT BID #15 ml NS 06/24/18 oxycodone-acetaminophen 5 mg-325 mg tablet 1 tab PO Q4-6H PRN #120 tab 07/06/18 pregabalin 150 mg capsule 150 mg PO TID #90 cap 07/06/18 esomeprazole magnesium 40 mg capsule,delayed release 1 tab-cap PO DAILY #30 cap 07/14/18 ezetimibe 10 mg tablet 10 mg PO DAILY #30 tab 07/14/18 duloxetine 60 mg capsule,delayed release 120 mg ORAL QD #60 cap 07/15/18 fluticasone 50 mcg/actuation nasal spray,suspension 2 spr ANTHONY DAILY #1 spr - Patient Allergies Allergies/Adverse Reactions: Allergies 3 Allergy/AdvReac Type Severity Reaction Status Date / Time codeine AdvReac NAUSEA Verified 07/29/18 14:16 Past Medical History - heen HEENT History: Dentures/Partials Additional HEENT History: Wears trifocals, wears upper dentures, lower dentures need to be refitted. Cardiovascular History: Hypertension, Hyperlipidemia Additional Cardiovasular History: SOB-ON OXYGEN AT NIGHT AND SOMETIMES IN DAYTIME WHEN TIRED Respiratory History: Asthma, Home Oxygen Use, Home CPAP Use Additional Respiratory History: OXYGEN AT NIGHT WITH CPAP Gastrointestinal History: GERD Genitourinary History: Recurrent UTI Endocrine History: Type 2 Diabetes (insulin), Hypothyroidism Musculoskeletal History: Denies History, Back Pain Prosthesis or Implant: Yes ([facility] BILAT) Additional Musculoskeletal History: neck surgery 07-12-14 Neurological History: TIA, Frequent Headaches Additional Neurological History: reports chronic peripheral neuropathy in feet. SALAZAR AFTER NECK SURGERY Blood Disorders: Denies History Psychiatric History: Depression, Anxiety Disorders History of Sexually Transmitted Diseases: No Female Reproductive History: Hysterectomy Additional Female Reproductive History: TOTAL HYSTERECTOMY- 1974 LMP: 1974 Obstetrical History: Denies History Cancer History: Denies History In Past Year Been Physically Harmed or Verbally Threatened: No History of MDRO: No History of Other Communicable Diseases: No Tobacco Use: Never Smoker Alcohol Use: None In the Past 12 Months, Have Used or Abuse Any Substance: None Previous Surgical History: Yes Type / Date of Surgery: BILAT EYE SURGERY RETNIA , DENTAL EXTRACTION, PARTIAL HYSTERECTOMY, TONSILLECTOMY, APPENDECTOMY, CHOLECYSTECTOMY, CERVICAL FUSION 06/28 , LEFT CTR, BILAT CATARACTS, LEFT GANGLION CYST HAND, Anesthesia Reactions: No Malignant Hyperthermia: No Significant Family History: Asthma, Heart disease, Cancer, Diabetes, Lung disease Past Medical History Reviewed: Reviewed - No Changes ROS - Limitations ROS Limitations: No Limitations Constitution: REPORTS: Chills. DENIES: Fever Cardiovascular: REPORTS: Chest Pain (Chest tightness especially with coughing). DENIES: Edema Respiratory: REPORTS: Cough Productive (Greenish phlegm), Shortness Of Breath Neurological: REPORTS: Confusion. DENIES: Headache (She did have some headache earlier although none currently), Numbness, Weakness Gastrointestinal: REPORTS: Nausea. DENIES: Abdominal Pain, Vomitting, Diarrhea Endocrine: REPORTS: Fatigue Musculoskeletal: DENIES: Lower Extremity Swelling Genitourinary: REPORTS: Dysuria, Other (Frequency) Eyes: REPORTS: Denies Symptoms ENT: REPORTS: Denies Symptoms Skin: DENIES: Rash General Adult Exam - General Appearance General Appearance: POSITIVE: Alert, Cooperative, No Acute Distress - HEENT HEENT: POSITIVE: Head Inspection Nml, Eyes Inspection Nml, Ears Inspection Nml, Pharynx Inspect. Nml, PERRL, EOMI - Neck Neck: POSITIVE: Normal Inspection. NEGATIVE: Lymphadenopathy - Respiratory Respiratory: POSITIVE: No Respiratory Distress, Breath Sounds Normal - Cardiovascular Cardiovascular: POSITIVE: Regular Rate & Rhythm, No Murmur Peripheral Pulses: Dorsalis-pedis (R): 2+, Dorsalis-pedis (L): 2+ - Abdomen Abdomen: Soft: (All Quadrants), Denies Tenderness: (All Quadrants), No Distention: (All Quadrants) - Skin Skin: POSITIVE: Normal Color, No Rash - Extremities Extremity: Normal ROM: (All Extremities), Normal Inspection: (All Extremities) General Adult Progress - Results Reviewed by me Xrays/CTs/US Reviewed by me: Yes Discussed with Radiologist: Yes Radiology Findings: CT head shows no acute findings per radiologist. CT of the chest shows discoid atelectasis in the right lung base with no evidence of PE or any other acute findings per radiologist. Chest x-ray showed no acute findings. Lab Results Reviewed by Me: Yes Lab Results:: Laboratory Results 3 07/29/18 07/29/18 07/29/18 14:40 15:26 15:26 WBC 5.90 RBC 4.63 Hgb 13.5 Hct 40.2 MCV 86.8 MCH 29.2 MCHC 33.6 RDW Std Deviation 41.9 RDW Coeff of Nicole 13.5 Plt Count 314 MPV 9.9 Immature Gran % (Auto) 0.3 Neut % (Auto) 60.1 Lymph % (Auto) 26.9 Dawson % (Auto) 6.6 Eos % (Auto) 5.6 Baso % (Auto) 0.5 Immature Gran # (Auto) 0.02 Neut # (Auto) 3.54 Lymph # (Auto) 1.59 Dawson # (Auto) 0.39 Eos # (Auto) 0.33 Baso # (Auto) 0.03 WBC Morphology Comment Normal morphology Plt Morphology Comment Normal morphology RBC Morph Comment Normal morphology D-Dimer 0.70 H VBG pH VBG pCO2 VBG HCO3 VBG Base Excess Sodium Potassium Chloride Carbon Dioxide Anion Gap BUN Creatinine Estimated GFR BUN/Creatinine Ratio Glucose Calculated Osmolality Lactic Acid Calcium Magnesium Total Bilirubin AST ALT Alkaline Phosphatase Troponin I C-Reactive Protein NT-Pro-B Natriuret Pep Total Protein Albumin Globulin Albumin/Globulin Ratio TSH Free T4 Ur Collection Type Clean catch urine Urine RBC None Urine WBC None Ur Squamous Epith Cells None Ur Renal Epithelial Cell None Urine Crystals None Urine Bacteria Rare Urine Casts None Urine Mucus None Urine Trichomonas None Urine Yeast None Serum Alcohol 3 07/29/18 07/29/18 07/29/18 15:26 15:26 15:26 WBC RBC Hgb Hct MCV MCH MCHC RDW Std Deviation RDW Coeff of Nicole Plt Count MPV Immature Gran % (Auto) Neut % (Auto) Lymph % (Auto) Dawson % (Auto) Eos % (Auto) Baso % (Auto) Immature Gran # (Auto) Neut # (Auto) Lymph # (Auto) Dawson # (Auto) Eos # (Auto) Baso # (Auto) WBC Morphology Comment Plt Morphology Comment RBC Morph Comment D-Dimer VBG pH VBG pCO2 VBG HCO3 VBG Base Excess Sodium 133 L Potassium 4.6 Chloride 96 L Carbon Dioxide 30 Anion Gap 7 BUN 41 H Creatinine 1.1 Estimated GFR 49 BUN/Creatinine Ratio 37.27 H Glucose 391 H Calculated Osmolality 301.0 H Lactic Acid 1.6 Calcium 10.3 Magnesium 1.5 L Total Bilirubin 0.4 AST 21 ALT 39 Alkaline Phosphatase 143 H Troponin I < 0.012 C-Reactive Protein 1.3 H NT-Pro-B Natriuret Pep 203 H Total Protein 7.9 Albumin 3.9 Globulin 3.9 Albumin/Globulin Ratio 1.00 L TSH Free T4 Ur Collection Type Urine RBC Urine WBC Ur Squamous Epith Cells Ur Renal Epithelial Cell Urine Crystals Urine Bacteria Urine Casts Urine Mucus Urine Trichomonas Urine Yeast Serum Alcohol < 10 3 07/29/18 07/29/18 15:26 15:27 WBC RBC Hgb Hct MCV MCH MCHC RDW Std Deviation RDW Coeff of Nicole Plt Count MPV Immature Gran % (Auto) Neut % (Auto) Lymph % (Auto) Dawson % (Auto) Eos % (Auto) Baso % (Auto) Immature Gran # (Auto) Neut # (Auto) Lymph # (Auto) Dawson # (Auto) Eos # (Auto) Baso # (Auto) WBC Morphology Comment Plt Morphology Comment RBC Morph Comment D-Dimer VBG pH 7.42 VBG pCO2 49 VBG HCO3 32 H VBG Base Excess 7 H Sodium Potassium Chloride Carbon Dioxide Anion Gap BUN Creatinine Estimated GFR BUN/Creatinine Ratio Glucose Calculated Osmolality Lactic Acid Calcium Magnesium Total Bilirubin AST ALT Alkaline Phosphatase Troponin I C-Reactive Protein NT-Pro-B Natriuret Pep Total Protein Albumin Globulin Albumin/Globulin Ratio TSH 6.13 H Free T4 1.15 Ur Collection Type Urine RBC Urine WBC Ur Squamous Epith Cells Ur Renal Epithelial Cell Urine Crystals Urine Bacteria Urine Casts Urine Mucus Urine Trichomonas Urine Yeast Serum Alcohol CBC and BMP: 07/29/18 15:26 07/29/18 15:26 EKG Interpreted/Reviewed By Me:: Yes EKG Interpretation:: POSITIVE: Normal Sinus Rhythm, Normal Rate, Normal QRS, Normal ST/T, Other (EKG had been done in the clinic) - Patient's Progress MDM / ED Course: The patient was hypoxic with oxygen saturations in the low 80s on room air on presentation to the clinic. She was placed on O2 per nasal cannula with improvement in her oxygen saturations. She is afebrile here however she does present with productive cough and chest tightness. Her initial EKG shows no acute ST segment or T-wave changes. Chest x-ray is unremarkable. Head CT is normal per radiologist. The patient's blood sugar was elevated at 390 and venous blood gas showed a normal pH. Urinalysis showed sugar with no evidence of infection. Initial troponin was negative. D-dimer was slightly elevated and subsequent CTA of the chest showed some discoid atelectasis in the right lung base with no evidence of PE or any other acute abnormalities per radiologist. The patient likely has exacerbation of COPD versus early pneumonia. Blood cultures and lactate have been drawn with initial IV start. Patient was started on Rocephin and Zithromax. She also received 1 L bolus of normal saline. Dr. Castellon has agreed to admit the patient for further treatment. The patient is in agreement with this plan. - Consult Counseled: POSITIVE: Patient, RE: Lab Results, RE: Radiology Results, RE: DX, RE : Need for F/U Patient Care Time - Estimated PCT Patient Care Time (In Minutes): 35 Vital Signs - Recent Vital Signs Vital Signs: Vital Signs (Last 8 hours) Temp Pulse Resp BP Pulse Ox 07/29/18 17:01 98.1 F 100 20 209/154 95 - VS Reviewed Vital Signs Reviewed: Yes Discharge Clinical Impression: Confusion, Hypoxia, COPD exacerbation, Hyperglycemia, Dehydration Discharge Disposition: Admit to Inpatient Condition: Fair Follow Up With: SUELLEN SNYDER [Primary Care Provider] - Date Decision to Admit to Inpatient: 07/29/18 Time Decision to Admit to Inpatient: 18:15
--- NOTE | 2018-07-29 19:05 | DI ---
CT HEAD SCAN WITHOUT IV CONTRAST, 07/29/2018 3:20 PM : Clinical History: Confusion. Previous Exam: 06/15/2017. Scans are obtained from the foramen magnum to the vertex without IV contrast. The 4th, 3rd, and lateral ventricles are of normal size, shape, position, and contour for the patient 's age. There are no abnormal areas of increased or decreased density. Specifically, there is no evid ence of an acute hemorrhagic or bland infarct. There is moderate cerebellar and cerebral atrophy. The re are no extracerebral mantles or shift of the midline structures. Bone window evaluation is normal. The paranasal sinuses are normal. READIN. There is no acute hemorrhagic or bland infarct. 2. Moderate cerebellar and cerebral atrophy. 3. There has been no significant interval change.
--- NOTE | 2018-07-29 19:11 | DI ---
AP CHEST X-RAY, 07/29/2018 3:20 PM : Clinical History: Cough. Hypoxia. Previous Exam: 06/22/2017. On this view, the patient took a shallow inspiration. There is no acute soft tissue or bony abnormali ty. Heart size is normal. Lungs are clear. Mediastinal structures are normal. There are no pulmonary nodules. Reading: Normal chest x-ray for the shallow degree of inspiration.
[2018-07-29 19:36] LABS: AMPHETAMINE SCREEN NEGATIVE (NEG); CANNABINOID SCREEN,URINE NEGATIVE (NEG); COCAINE SCREEN NEGATIVE (NEG); METHADONE URINE SCREEN NEGATIVE (NEG); METHAMPHETAMINES SCREEN,URINE NEGATIVE (NEG); OPIATE SCREEN,URINE NEGATIVE (NEG); URINE SPECIFIC GRAVITY - MAN 1.025
--- NOTE | 2018-07-29 20:30 | PDOC ---
HPI - History of Present Illness Date of Service: 07/29/18 Time of Service: 20:00 Chief Complaint: Cough with green phlegm production, tightness of the chest a few days duration History of Present Illness: This is a 68 years old female with medical history significant for history of diabetes, hypertension, hypercholesterolemia, coronary artery disease and history of sleep apnea who was sent to the ER because of history of cough, green phlegm production and weakness. in Addition she mentioned shortness of breath and also at times report tightness. She said the tightness in the chest is when she do things. She would sit down after that then it goes away. There is no pain in her arm. In addition at that time she said that she had shortness of breath when she coughs. When she went to the urgent care clinic her sats were 88% and she was sent from there to the ER. She complained also from vomiting 2 days ago. She said she's not been checking her blood sugar as she used to to check it 4 times a day while this week she checked it may be twice. She did not give a clear reason why except that she forgets. She uses oxygen only at night. She came into the ER a CT of the chest was negative except she has some atelectasis. No PE. Blood culture was taken and the was admitted. She did say that she had the an angiogram done 2 months ago, she said that she need intervention but was not done until she had eye surgery and this was also not done. Not sure whether her understanding is accurate. Past Medical History Medical History: 1. Diabetes on insulin. 2. Hypertension. 3. Hypercholesterolemia. 4. GERD. 5. Hypothyroidism Surgical History: 1. Hysterectomy. 2. Cholecystectomy. 3. Appendectomy. 4. Anterior cervical fusion last year. 5. Tonsillectomy Family History: Reviewed an Not Pertinent Past Social History: She does not smoke, does not drink, no drugs. Lives here with her son. Tobacco Use: Never Smoker Do you dip or chew tobacco: No In the Past 12 Months, Have Used or Abuse Any of the Following Substance: None Alcohol Use: None Medication / Allergies Home Medications: Home Medications 3 Medication Instructions Recorded Confirmed Type Cetirizine HCl [Zyrtec] 10 mg ORAL QD #30 tab 12/07/16 07/29/18 Rx Pen Needle, Diabetic [Pen Needle] 1 [facility] QID #1 box 12/07/16 07/29/18 Rx Fluticasone Propionate [Flonase 2 spr ANTHONY DAILY #1 spr 04/05/17 Clinic Allergy Relief] Cholecalciferol (Vitamin D3) 1 cap PO QD #30 cap 06/07/17 07/29/18 Rx [Vitamin D3] Oxycodone HCl/Acetaminophen 1 tab PO Q6H #120 tab 06/07/17 Clinic [Oxycodone-Acetaminophen 5-325] aspirin 81 mg tablet,delayed 81 mg PO QDAY tab 08/03/17 07/29/18 History release cyclobenzaprine 10 mg tablet 10 mg PO TID #60 tab 08/11/17 07/29/18 Rx albuterol sulfate HFA 90 2 puff INH Q4-6H PRN #2 device 09/20/17 07/29/18 Rx mcg/actuation aerosol inhaler polyethylene glycol 3350 17 gram 17 g PO QDAY #30 ea 12/15/17 07/29/18 Rx oral powder packet insulin aspart U-100 100 unit/mL 5 unit SUBCUT TIDWM #1 vial 01/28/18 07/29/18 Rx subcutaneous solution blood sugar diagnostic strips 1 strip MISCELLANEOUS TID #100 02/01/18 07/29/18 Rx strip pravastatin 80 mg tablet 1 tab PO DAILY #90 tab 04/04/18 07/29/18 Rx dulaglutide 0.75 mg/0.5 mL 0.75 mg SUBCUT WEEKLY #2 ml 04/13/18 07/29/18 Rx subcutaneous pen injector levothyroxine 200 mcg tablet 200 mcg PO QDAY #30 tab 04/13/18 07/29/18 Rx lisinopril 10 mg tablet 10 mg PO QDAY #30 tab 04/13/18 07/29/18 Rx metronidazole 0.75 % topical gel 1 applic TOPICAL BID #45 g 04/13/18 07/29/18 Rx nystatin 100,000 unit/gram topical 1 applic TOPICAL TID #1 ea 04/13/18 07/29/18 Rx powder metoprolol tartrate 25 mg tablet 25 mg PO BID 05/06/18 07/29/18 History linaclotide 290 mcg capsule #4 Samples 05/30/18 07/29/18 Sample ergocalciferol (vitamin D2) 50,000 1 unit PO 2xw #16 unit 06/06/18 07/29/18 Rx unit capsule Tresiba FlexTouch U-100 insulin 45 unit SUBCUT BID #15 ml NS 06/24/18 07/29/18 Rx 100 unit/mL (3 mL) subcutaneous pen oxycodone-acetaminophen 5 mg-325 1 tab PO Q4-6H PRN #120 tab 07/06/18 07/29/18 Rx mg tablet pregabalin 150 mg capsule 150 mg PO TID #90 cap 07/06/18 07/29/18 Rx esomeprazole magnesium 40 mg 1 tab-cap PO DAILY #30 cap 07/14/18 07/29/18 Rx capsule,delayed release ezetimibe 10 mg tablet 10 mg PO DAILY #30 tab 07/14/18 07/29/18 Rx duloxetine 60 mg capsule,delayed 120 mg ORAL QD #60 cap 07/15/18 07/29/18 Rx release fluticasone 50 mcg/actuation nasal 2 spr ANTHONY DAILY #1 spr 07/15/18 07/29/18 Clinic spray,suspension Allergies/Adverse Reactions: Allergies 3 Allergy/AdvReac Type Severity Reaction Status Date / Time codeine AdvReac NAUSEA Verified 07/30/18 07:32 Exam - Vitals Vital Signs: Vital Signs Temperature 97.4 F Temperature Source Temporal Artery Scan Pulse Rate [Pulse Oximeter 100 Bilateral Radial] Pulse Rate 91 Respiratory Rate 20 Blood Pressure [Left Arm] 209/154 Blood Pressure 166/104 Pulse Ox 96 Oxygen Delivery Method Room Air Height 5 ft 6 in Weight 190 lb - General General Appearance: No Acute Distress, Cooperative, Obese - Head Head Exam: Normal Inspection - Eye Eye Exam: POSITIVE: Normal Appearance - ENT ENT Exam: POSITIVE: Normal Exam - Neck Neck Exam: Normal Inspection - Respiratory Respiratory Exam: POSITIVE: Clear to Auscultation - Bilaterally - Cardiovascular Cardiovascular Exam: POSITIVE: RRR - GI/Abdominal GI/Abdominal Exam: POSITIVE: Normal Bowel Sounds, Non Tender, Non Distended, No Organomegaly - Rectal Rectal Exam: POSITIVE: Deferred - External Exam: POSITIVE: Deferred - Extremities Extremities Exam: POSITIVE: Normal Inspection - Back Back Exam: POSITIVE: Normal Inspection - Neurological Neurological Exam: POSITIVE: Alert, Oriented x 3, CN II-XII Intact, Speech Intact / Clear, Moves All Extremities Equally Results - Labs CBC and BMP: 07/29/18 15:26 07/30/18 04:40 - Imaging Status: Report Reviewed by Me (CT chest 1. Normal CTA of the chest. There are no pulmonary emboli or pulmonary infarcts. 2. There is no acute infiltrate or effusion. CT head 1. There is no acute hemorrhagic or bland infarct. 2. Moderate cerebellar and cerebral atrophy. 3. There has been no significant interval change. Chest X ray Normal chest x-ray for the shallow degree of inspiration.) Assessment and Plan - Patient Problems (1) COPD exacerbation Current Visit: Yes Status: Acute Comment: She may have some bronchitis, she got antibiotics I think we'll continue with antibiotics. Will put her on breathing treatment. I think we'll hold off on steroid. At times based on her description the shortness of breath that she is describing seems to be related to her lung condition but at another time seems to be independent I think we'll try to get the records from [place] and see whether there is cardiac etiology for her symptoms. Code(s): J44.1 - Chronic obstructive pulmonary disease with (acute) exacerbation (2) Dehydration Current Visit: Yes Status: Acute Comment: The blood sugar is elevated we'll put her on sliding scale, will give some fluid. Code(s): E86.0 - Dehydration (3) Essential hypertension Current Visit: No Status: Acute Onset Date: 10/14/12 Comment: We'll see what her blood pressure number put her on lisinopril and metoprolol and adjust as needed Code(s): I10 - Essential (primary) hypertension (4) Diabetes Current Visit: Yes Status: Acute Comment: Continue with her previous medication in addition to sliding scale. Code(s): E11.9 - Type 2 diabetes mellitus without complications
[2018-07-29] MEDS ORDERED: LIDOCAINE W/ SODIUM BICARB 0.5 ML SYR SUBD PRN (20:38)
[2018-07-29] MEDS: Lactated Ringers 1,000 ML PRIMARY IV SCH (21:12)
[2018-07-29] MEDS: Insulin Lispro Flexpen 300 UNIT/3 ML INSULN.PEN SUBCUT SCH (21:15)
[2018-07-29] MEDS: Pregabalin Cap 150mg capsule PO SCH (21:39)
[2018-07-29] MEDS: Metoprolol TARTRATE Tab 25 MG TAB PO SCH (21:39)
[2018-07-29] MEDS: INSULIN DEGLUDEC 45 UNIT SUBCUT SCH (21:39)
[2018-07-30] MEDS: LEVALBUTEROL HCL 1.25 MG/3 ML NEB SCH ×4 (01:22→19:20)
[2018-07-30] MEDS: LEVOTHYROXINE 100 MCG TABLET PO SCH (04:50)
[2018-07-30] MEDS: Lactated Ringers 1,000 ML PRIMARY IV SCH ×2 (04:50→14:21)
[2018-07-30] MEDS: Insulin Lispro Flexpen 300 UNIT/3 ML INSULN.PEN SUBCUT SCH ×4 (07:29→21:04)
[2018-07-30] MEDS: Esomeprazole DR 20mg Capsule PO SCH (09:37)
[2018-07-30] MEDS: EZETIMIBE 10 MG TABLET PO SCH (09:37)
[2018-07-30] MEDS: Pregabalin Cap 150mg capsule PO SCH ×2 (09:37→14:37)
[2018-07-30] MEDS: Metoprolol TARTRATE Tab 25 MG TAB PO SCH ×2 (09:37→20:57)
[2018-07-30] MEDS: ASPIRIN EC 81 MG TABLET PO SCH (09:37)
[2018-07-30] MEDS: FLUTICASONE PROPIONATE 16 GRAM (120 SPRAYS / BOTTLE) ENOS SCH (09:45)
[2018-07-30] MEDS: INSULIN DEGLUDEC 45 UNIT SUBCUT SCH ×3 (09:45→22:32)
[2018-07-30] MEDS: LISINOPRIL 10 MG TABLET PO SCH (09:45)
--- NOTE | 2018-07-30 10:39 | PDOC(PROG) ---
Date of Service: 07/30/18 Time of Service: 10:45 Interval History: Subjective Patient feels somewhat better compared to when she came in. The cuff seem to be improved. Minimal phlegm. She is denying tightness in the chest today. No vomiting. She said she feels still weak. Objective : Data - Labs CBC and BMP: 07/29/18 15:26 07/30/18 04:40 Objective : Exam - General General Appearance: No Acute Distress, Cooperative, Obese - Head Head Exam: Normal Inspection - Eye Eye Exam: Normal Appearance - ENT ENT Exam: Normal Exam - Neck Neck Exam: Normal Inspection - Respiratory Additional Respiratory Exam Details: Decreased air entry a few crackles at the right base. - Cardiovascular Cardiovascular Exam: RRR - GI/Abdominal GI/Abdominal Exam: Normal Bowel Sounds, Non Tender, Non Distended, Soft, No Organomegaly - Rectal Rectal Exam: Deferred - External Exam: Deferred - Extremities Extremities Exam: Normal Inspection - Back Back Exam: Normal Inspection - Neurological Neurological Exam: Alert, Oriented x 3, CN II-XII Intact, No Facial Droop, Speech Intact / Clear, Moves All Extremities Equally - Psychiatric Psychiatric Exam: Flat Affect - Integumentary Integumentary Exam: Normal Color Assessment and Plan - Patient Problems (1) COPD exacerbation Current Visit: Yes Status: Acute Comment: I think we'll continue with antibiotics. Continue breathing treatment. She is weak will ask PT and OT to work with her. Regarding the tightness in the chest I did obtain records from [place] and that showed 2 vessels disease between 70-80% 1 and nondominant RCA and one in up to his marginal was a small vessel. I did speak with Dr. Lee and he think more of medical treatment so we put her on long-acting nitrate. He suggested increasing the metoprolol if she tolerate that and she need to follow up with them as an outpatient. Code(s): J44.1 - Chronic obstructive pulmonary disease with (acute) exacerbation (2) Dehydration Current Visit: Yes Status: Acute Comment: Continue IV fluid for another day at the lower grade though. Code(s): E86.0 - Dehydration (3) Essential hypertension Current Visit: No Status: Acute Onset Date: 10/14/12 Comment: Same medications Code(s): I10 - Essential (primary) hypertension (4) Diabetes Current Visit: Yes Status: Acute Comment: Continue same medications Code(s): E11.9 - Type 2 diabetes mellitus without complications
[2018-07-30] MEDS: ISOSORBIDE MONONITRATE 30 MG SR 24H TABLET PO SCH (11:33)
[2018-07-30] MEDS: ONDANSETRON 4 MG/2 ML VIAL IVP PRN ×2 (14:21→19:46)
[2018-07-30] MEDS: ACETAMINOPHEN 325 MG TABLET PO PRN ×2 (14:36→19:47)
[2018-07-30] MEDS: cefTRIAXone Inj 1 GM in Sodium Chloride 0.9% 100 ML IV SCH (17:01)
[2018-07-30] MEDS: Pravastatin 80mg Tab PO SCH (20:57)
[2018-07-30] MEDS: Insulin Glargine SoloStar Inj 100 UNIT/ML INSULN.PEN SUBCUT SCH (22:33)
[2018-07-31] MEDS ORDERED: Magnesium Sulfate 2gm (Premix) 2 GM/50 ML BAG IV ONE (00:03)
[2018-07-31] MEDS: LEVALBUTEROL HCL 1.25 MG/3 ML NEB SCH ×4 (05:19→19:01)
[2018-07-31] MEDS: LEVOTHYROXINE 100 MCG TABLET PO SCH (05:29)
[2018-07-31] MEDS: POLYETHYLENE GLYCOL 3350 17 GM POWDER PO PRN (05:34)
[2018-07-31] MEDS: Insulin Lispro Flexpen 300 UNIT/3 ML INSULN.PEN SUBCUT SCH ×4 (07:16→20:50)
[2018-07-31] MEDS: MAGNESIUM OXIDE 400 MG TABLET PO SCH (07:16)
[2018-07-31] MEDS: Esomeprazole DR 20mg Capsule PO SCH (07:16)
[2018-07-31] MEDS: FLUTICASONE PROPIONATE 16 GRAM (120 SPRAYS / BOTTLE) ENOS SCH (08:33)
[2018-07-31] MEDS: Insulin Glargine SoloStar Inj 100 UNIT/ML INSULN.PEN SUBCUT SCH ×2 (08:34→20:49)
[2018-07-31] MEDS: Metoprolol TARTRATE Tab 25 MG TAB PO SCH ×2 (08:34→20:49)
[2018-07-31] MEDS: EZETIMIBE 10 MG TABLET PO SCH (08:34)
[2018-07-31] MEDS: DULOXETINE 60 MG CAPSULE PO SCH (08:34)
[2018-07-31] MEDS: ISOSORBIDE MONONITRATE 30 MG SR 24H TABLET PO SCH (08:35)
[2018-07-31] MEDS: LISINOPRIL 10 MG TABLET PO SCH (08:35)
[2018-07-31] MEDS: ASPIRIN EC 81 MG TABLET PO SCH (08:35)
--- NOTE | 2018-07-31 09:07 | PDOC(PROG) ---
Date of Service: 07/31/18 Time of Service: 09:10 Interval History: Subjective She said she does not have tightness in her chest. She is still feeling weak. She did feel some shortness of breath she said as she walked back from the shower to her room. No chest pain. No vomiting. Objective : Data - Labs CBC and BMP: 07/29/18 15:26 07/31/18 05:45 Objective : Exam - General General Appearance: No Acute Distress, Obese - Head Head Exam: Normal Inspection - Eye Eye Exam: Normal Appearance - ENT ENT Exam: Normal Exam - Neck Neck Exam: Normal Inspection - Respiratory Additional Respiratory Exam Details: Decreased air entry with few crackles at the bases. - Cardiovascular Cardiovascular Exam: RRR - GI/Abdominal GI/Abdominal Exam: Normal Bowel Sounds, Non Tender, Non Distended, Soft, No Organomegaly - Rectal Rectal Exam: Deferred - External Exam: Deferred Exam: Deferred - Extremities Extremities Exam: Normal Inspection - Back Back Exam: Normal Inspection - Neurological Neurological Exam: Alert, Oriented x 3, Normal Gait, CN II-XII Intact, Speech Intact / Clear - Psychiatric Psychiatric Exam: Normal Affect Assessment and Plan - Patient Problems (1) COPD exacerbation Current Visit: Yes Status: Acute Comment: Continue bronchodilator treatment and continue antibiotics for another day IV. Code(s): J44.1 - Chronic obstructive pulmonary disease with (acute) exacerbation (2) Dehydration Current Visit: Yes Status: Acute Comment: This is resolved. Code(s): E86.0 - Dehydration (3) Essential hypertension Current Visit: No Status: Acute Onset Date: 10/14/12 Comment: Continue metoprolol and lisinopril. Code(s): I10 - Essential (primary) hypertension (4) Diabetes Current Visit: Yes Status: Acute Comment: We switch her to Lantus as we don't have trseba, continue sliding scale. Code(s): E11.9 - Type 2 diabetes mellitus without complications (5) Weakness Current Visit: Yes Status: Acute Comment: She still feel weak will continue PT and OT. Code(s): R53.1 - Weakness
[2018-07-31] MEDS: ACETAMINOPHEN 325 MG TABLET PO PRN (11:50)
--- NOTE | 2018-07-31 12:44 | OT.PROG ---
Progress Note Progress Note: S: pt reports pain in neck, knees, shoulders, forearm and hand. O: pt was seen in her room and after toilet transfer with nursing completed transfer to [facility] and was left on 2 liters of o2. She completed 10 min on Nu step to increase activity tolerance. She transferred to mat table where she completed UE exericse with 2# wrist weights in shoulder flex, abd, bicep flex and shoulder press. She also completed prop input through R Ue by wb'ing fro 2- 3 min. She then complete LE exercises with 2# on ankles in marching, LAQ, and minute drills. She also completed 2# box x10. She then transferred approx 20 ft before sitting in [facility] and being returned to her room. She was left upright in chair with call light within reach. A: pt participated well today. She reports weak Right side but demonstrated ability to complete exercises well with that UE. P: Continue per POC.
[2018-07-31] MEDS: cefTRIAXone Inj 1 GM in Sodium Chloride 0.9% 100 ML IV SCH (17:23)
[2018-07-31] MEDS: Pravastatin 80mg Tab PO SCH (20:49)
[2018-08-01] MEDS: LEVALBUTEROL HCL 1.25 MG/3 ML NEB SCH ×4 (01:14→19:27)
[2018-08-01] MEDS: Insulin Lispro Flexpen 300 UNIT/3 ML INSULN.PEN SUBCUT SCH ×4 (07:23→21:06)
[2018-08-01] MEDS: MAGNESIUM OXIDE 400 MG TABLET PO SCH (07:35)
[2018-08-01] MEDS: POLYETHYLENE GLYCOL 3350 17 GM POWDER PO PRN (07:40)
[2018-08-01] MEDS: LEVOTHYROXINE 100 MCG TABLET PO SCH (07:40)
--- NOTE | 2018-08-01 08:29 | PDOC(PROG) ---
Date of Service: 08/01/18 Time of Service: 08:00 Interval History: Subjective She said she is still feeling weak but getting stronger though. Cough is less than before. Said she had some shortness of breath yesterday but not today. No tightness in the chest today. Objective : Data - Labs CBC and BMP: 07/29/18 15:26 07/31/18 05:45 Objective : Exam - General General Appearance: No Acute Distress, Cooperative, Obese - Head Head Exam: Normal Inspection - Eye Eye Exam: Normal Appearance - ENT ENT Exam: Normal Exam - Neck Neck Exam: Normal Inspection - Respiratory Additional Respiratory Exam Details: Decreased air entry with few crackles at the bases. - Cardiovascular Cardiovascular Exam: RRR - GI/Abdominal GI/Abdominal Exam: Normal Bowel Sounds, Non Tender, Non Distended, Soft, No Organomegaly - Rectal Rectal Exam: Deferred - External Exam: Deferred Exam: Deferred - Extremities Extremities Exam: Normal Inspection - Back Back Exam: Normal Inspection - Neurological Neurological Exam: Alert, Oriented x 3, CN II-XII Intact, No Facial Droop, Speech Intact / Clear, Moves All Extremities Equally - Psychiatric Psychiatric Exam: Normal Affect Assessment and Plan - Patient Problems (1) COPD exacerbation Current Visit: Yes Status: Acute Comment: Continue antibiotics and bronchodilator. I did speak with the strategic planner about maybe switching her to swing bed to continue physical therapy as she is still weak. Code(s): J44.1 - Chronic obstructive pulmonary disease with (acute) exacerbation (2) Dehydration Current Visit: Yes Status: Acute Comment: This is resolved Code(s): E86.0 - Dehydration (3) Essential hypertension Current Visit: No Status: Acute Onset Date: 10/14/12 Comment: Continue same medications. Code(s): I10 - Essential (primary) hypertension (4) Diabetes Current Visit: Yes Status: Acute Comment: Continue same dosage of insulin Code(s): E11.9 - Type 2 diabetes mellitus without complications (5) Weakness Current Visit: Yes Status: Acute Comment: Continue PT and OT Code(s): R53.1 - Weakness (6) Coronary artery disease Current Visit: Yes Status: Acute Comment: She is on aspirin, beta vandana and Imdur. She is denying tightness in the chest now I think we'll keep the same dosage. She need follow-up with the cardiology when she leaves. Code(s): I25.10 - Atherosclerotic heart disease of [place] coronary artery without angina pectoris
[2018-08-01] MEDS ORDERED: ENOXAPARIN SODIUM 40 MG/0.4 ML SYRINGE SUBCUT SCH (09:00)
[2018-08-01] MEDS: EZETIMIBE 10 MG TABLET PO SCH (09:04)
[2018-08-01] MEDS: DULOXETINE 60 MG CAPSULE PO SCH (09:04)
[2018-08-01] MEDS: Metoprolol TARTRATE Tab 25 MG TAB PO SCH ×2 (09:05→21:02)
[2018-08-01] MEDS: ASPIRIN EC 81 MG TABLET PO SCH (09:05)
[2018-08-01] MEDS: ISOSORBIDE MONONITRATE 30 MG SR 24H TABLET PO SCH (09:05)
[2018-08-01] MEDS: Insulin Glargine SoloStar Inj 100 UNIT/ML INSULN.PEN SUBCUT SCH ×2 (09:05→21:06)
[2018-08-01] MEDS: Esomeprazole DR 20mg Capsule PO SCH (09:05)
[2018-08-01] MEDS: LISINOPRIL 10 MG TABLET PO SCH (09:05)
[2018-08-01] MEDS: FLUTICASONE PROPIONATE 16 GRAM (120 SPRAYS / BOTTLE) ENOS SCH (09:59)
--- NOTE | 2018-08-01 11:32 | PTI REPORT ---
Thank you for the referral of Yaquelin Jimenez. She was seen on 07/30/18 for an inpatient evaluation secondary to weakness. SUBJECTIVE: The patient is a 68-year-old female. The therapist and the patient are quite familiar with each other. We have worked with her on multiple diagnostic issues in the past. She has currently been admitted and is being monitored for cardiac issues, shortness of breath, and falling. She states her main complaint today is of right low back pain and weakness of her lower extremities. She states when she moves from supine to sit or from sit to stand or changes position, she gets a really bad headache. The patient states she lives with her son at home. The patient states she fell a couple of days ago at home and injured that leg. PAST MEDICAL HISTORY: Past medical history can be found in the patient's medical record. OBJECTIVE FINDINGS: General observations: The patient was alert and oriented x3. Range of motion: The patient had very limited cervical spine range of motion as she has a past history of multiple surgical procedures there. Her right shoulder demonstrated range of motion to 90 degrees of flexion and abduction only and was very painful at the end range. Left shoulder had full and functional range of motion. She is complaining of a trigger finger on her right index finger. She demonstrates functional range of motion of the right lower extremity, but appears weak today. Strength: Elbow, hand, and finger function were 3/5 for strength. Left shoulder had 4+/5 for strength of the shoulder, elbow, and hand. Core strength is poor. Her right hip, knee, ankle, and foot all demonstrate strength of 3/5 compared to 4/5 on the left lower extremity. Bed mobility: The patient was able to come from a supine to seated position, but states that really hurts her neck. Balance: Balance is very poor. Her Majano score today was 18. Transfers/Ambulation: Upon sit to stand transfer and ambulation, her right leg seemed to give out a couple of times and she caught herself or needed assist of one and physical cueing to prevent her from falling. She does use a walker at home now if there is one available in the room. ASSESSMENT: Weakness of both lower extremities. Right lower extremity and right upper extremity are weaker than the left side. The therapist is not sure how long that has been or if this is a new situation. 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 All of these things limit her overall mobility. Short-Term Goals: To be met by discharge from inpatient: Patient will be able to transfer form bed to stand independently. Patient will be able to ambulate 100 feet with least restrictive assistive device. Patient will demonstrate lower extremity strength of 4/5 bilaterally. Long-Term Goals: To be met following discharge from inpatient: Patient will be seen by outpatient physical therapy. TREATMENT PLAN: Patient will be seen B.I.D during the week and one time per day over the weekend as an inpatient for gentle strengthening of uppers and lowers, emphasizing the right side, working on safe transfers, and increasing the patient's ambulatory status. We will have to see how safe the patient is before returning to home in a somewhat independent environment. INITIAL TREATMENT: Treatment today consisted of the initial evaluation activities only. LUIS
[2018-08-01] MEDS: ACETAMINOPHEN 325 MG TABLET PO PRN ×2 (12:33→21:15)
--- NOTE | 2018-08-01 15:53 | OTI REPORT ---
Thank you for the referral of Yaquelin Jimenez. She was seen on 08/01/18 for an occupational therapy inpatient evaluation secondary to weakness and falls. SUBJECTIVE: The patient is a 68-year-old female. The patient reports that she currently has some neck and head pain at an 8/10 on the verbal analog scale (0=no pain, 10 =worst pain); however, she agrees to participate in occupational therapy evaluation. The patient reports that she is currently on two liters of oxygen. At home she is on no oxygen during the day and two liters at night. Prior level of function: The patient was independent with all ADLs including laundry. For cooking, the patient prepared a morning meal. She received meals on wheels for her mid-day meal. For her evening meal, her son's girlfriend performed the evening cooking. The patient did not drive at prior level of function due to vision issues. The patient lives in [place], [place]. She reports that she has six steps to the entrance of her home with a hand rails on one side. The patient lives in a trailer house. There are no steps within the home. The patient has both tile and carpet within the home. Bathroom set up includes a tub/shower combo with no shower chair, a standard toilet that is low , and grab bars within the shower. The patient would like to return home following her discharge. The patient reports that she came in on Wednesday. The patient does have continued weakness and she is feeling weak today. The patient did report some pain on her right upper extremity with range of motion and strength testing. The patient reports that she is incontinent with bladder at times as well as her bowel and she is having some issues with her bowels right now. The patient wears disposable briefs. The patient has a history of Diabetes and she checks her own blood sugar at home. The patient has been admitted due to a COPD exacerbation. The patient reports that she has fallen in the past but that was in the last couple of months. PAST MEDICAL HISTORY: Past medical history can be found in the patient's medical record. OBJECTIVE FINDINGS: General observations: The patient's blood pressure was taken prior to session and it was 149/65. Bed mobility: The patient demonstrated the ability to perform bed mobility to include moving from supine to sitting edge of bed with stand by assistance. Transfers: The patient performed sit to stand transfer from the bed, wheelchair , and regular chair with stand by assistance. Activities of daily living: The patient demonstrated the ability to don socks with set up and contact guard assist for safety. The patient completed a toileting task with stand by assist for the transfer. The patient was independent with pants management and independent with toilet hygiene with use of a toilet riser with handles. Range of motion: The patient demonstrated upper extremity range of motion within functional limits for the shoulders, elbows, hands, and wrists. Strength: Upper extremity strength for left shoulder flexion/abduction is 3/5 and right shoulder flexion/abduction is 3+/5. Elbow, hand, and wrist strength is 4/5 bilaterally. Ambulation: The patient demonstrated the ability to ambulate x15 feet+ with contact guard assist for safety. She does report that her legs tend to give out at times. ASSESSMENT: Problem List: Decreased upper extremity strength Decreased activity tolerance Decreased functional activity Short-Term Goals: To be met by discharge from inpatient: Patient will demonstrate improved activity tolerance/standing balance in order to stand at the sink x15 minutes before requiring a rest break with zero losses of balance in order to complete standing grooming tasks. Patient will complete a seated and or standing showering task with modified independence. Patient will complete a toileting task with modified independence for pants management, hygiene, and transfer. Patient will complete lower and upper extremity dressing with set up assist only. Patient will increase bilateral upper extremity strength by one manual muscle grade. Patient will perform all functional transfers to include toilet/bed/chair with stand by assistance only with no losses of balance. Long-Term Goals: To be met following discharge from inpatient: Patient will return home and be independent with ADLs. Patient may benefit from the use of a toilet riser as hers is very low. Patient may benefit from a shower seat at home. TREATMENT PLAN: Patient will be seen B.I.D during the week and one time per day over the weekend as an inpatient to address the above goals and objectives. INITIAL TREATMENT: Treatment today consisted of the initial evaluation followed by functional tasks to include donning and doffing socks, functional ambulation, transfers, and therapeutic exercises including red theraband strengthening and the UBE x6 minutes. Oxygen saturation was tested following 6 minutes of upper extremity activity. The patient's oxygen saturation was 95% at two liters of oxygen. MTDD
--- NOTE | 2018-08-01 16:45 | PT.PROG ---
Progress Note Progress Note: S. Patient stated that she would be willing to do therapy this morning. O. Patient ambulated 150 feet around the nurses station and back to her room where she performed seated exercises in the form of; long arc quads, heel toe raises, marches, pillow squeezes all x 15 bilaterally Patient was left in chair with alarm and call light. A. Patient tolerated therapy well, she was fatigued by the end of the ambulation , she continues to have weakness and would continue to benefit from skilled therapy to increase strength, endurance and mobility at this time. P. Continue POC.
--- NOTE | 2018-08-01 16:58 | PT.PROG ---
Progress Note Progress Note: S. Patient stated that she is feeling better this afternoon. O. Patient was wheeled to the therapy gym where she used the nu-step x 10 minutes, then performed exercises in the form of; long arc quads, marches, heel toe raises, ball squeezes, clam shells, resisted knee flexion and sit to stands all x 10 and ambulated 175 feet back to her room where she was left with alarm and call light. A. Patient was able to tolerate therapy well this afternoon, she continues to struggle with weakness and would continue to benefit from skilled therapy to increase safety and endurance at this time. P. Continue POC
[2018-08-01] MEDS: cefTRIAXone Inj 1 GM in Sodium Chloride 0.9% 100 ML IV SCH (17:33)
[2018-08-01] MEDS: Pravastatin 80mg Tab PO SCH (21:02)
[2018-08-02] MEDS: LEVALBUTEROL HCL 1.25 MG/3 ML NEB SCH ×2 (00:58→06:53)
[2018-08-02] MEDS: ACETAMINOPHEN 325 MG TABLET PO PRN (03:59)
[2018-08-02] MEDS: LEVOTHYROXINE 100 MCG TABLET PO SCH (05:21)
[2018-08-02 06:48] VITALS: RESP 18
[2018-08-02] MEDS: Esomeprazole DR 20mg Capsule PO SCH (08:08)
[2018-08-02] MEDS: MAGNESIUM OXIDE 400 MG TABLET PO SCH (08:08)
[2018-08-02] MEDS: DULOXETINE 60 MG CAPSULE PO SCH (08:48)
[2018-08-02] MEDS: LISINOPRIL 10 MG TABLET PO SCH (08:49)
[2018-08-02] MEDS: ISOSORBIDE MONONITRATE 30 MG SR 24H TABLET PO SCH (08:49)
[2018-08-02] MEDS: Metoprolol TARTRATE Tab 25 MG TAB PO SCH (08:49)
[2018-08-02] MEDS: POLYETHYLENE GLYCOL 3350 17 GM POWDER PO PRN (08:49)
[2018-08-02] MEDS: ASPIRIN EC 81 MG TABLET PO SCH (08:49)
[2018-08-02] MEDS: EZETIMIBE 10 MG TABLET PO SCH (08:49)
--- NOTE | 2018-08-02 08:49 | DCSUMMARY ---
Hospitalization Summary Admit Date: 07/29/2018 Discharge Date: 08/02/18 Hospital Course: Discharge diagnoses 1. COPD exacerbation 2. Weakness 3. Atelectasis 4. Diabetes on insulin 5. Hypertension 6. Hypercholesterolemia 7. Hypothyroidism 8. GERD 9. Coronary artery disease, two-vessel disease on an angiogram done in April this year treated medically. 10. History of retinal hemorrhage on the left 11. History of hysterectomy 12. History of cholecystectomy 13. History of neck surgery and at one point in time affected her speech and cause problems swallowing according to her Hospital course This is a 68 years old the female with medical history significant for history of diabetes, hypertension, hypercholesterolemia, coronary artery disease and history of sleep apnea who was brought to the ER because of history of cough with green phlegm production and weakness. In addition she did mentioned shortness of breath and also at times report tightness in her chest. The tightness in the chest was worse when she do things she would sit down after and that then goes away. There was no pain in her arm. In addition she did mention that there is shortness of breath when she coughs. When she went to the urgent clinic her sats were 88% and she was sent from there to the ER. She is not checking her blood sugar on the days before she came into the ER. She did not give a clear reason why except that she forgets. She is only on oxygen at night. In the ER she had a CT of the chest that showed some atelectasis. No PE. We did admit the patient to the hospital started on antibiotics. We elected to treat her as a COPD exacerbation. The other concern though was the tightness that she was having her chest with her history of coronary artery disease. We did obtain the records from [facility] and that did show two-vessel disease. I did speak with Dr. Lee, he reviewed the angiogram and recommended continue medical management. We added imdur that seemed to help her symptoms. He suggested to increase the metoprolol if she continued to have symptoms and need to follow up with them when she is discharged from the hospital. While she was here she started physical therapy thought improved she remained feeling so we discussed with her going to swing bed status and she accepted so will be switched to swing bed status continue rehabilitation. Discharge instruction Diet regular Activity as tolerated Medications see chart Follow-up patient will switch to swing bed status Exam - Vitals Vital Signs: Vital Signs Temperature 97.0 F Temperature Source Temporal Artery Scan Pulse Rate [Apical] 80 Pulse Rate [Pulse Oximeter] 80 Pulse Rate [Pulse Oximeter 87 Bilateral Radial] Pulse Rate 78 Respiratory Rate 18 Blood Pressure [Left Arm] 149/67 Blood Pressure 166/104 Pulse Ox 100 Oxygen Flow Rate 2 Oxygen Delivery Method Nasal Cannula Height 5 ft 5 in Weight 201 lb - General General Appearance: No Acute Distress, Cooperative, Obese - Head Head Exam: Normal Inspection - Eye Eye Exam: POSITIVE: Normal Appearance - ENT ENT Exam: POSITIVE: Normal Exam - Neck Neck Exam: Normal Inspection - Respiratory Respiratory Exam: POSITIVE: Clear to Auscultation - Bilaterally - Cardiovascular Cardiovascular Exam: POSITIVE: RRR - GI/Abdominal GI/Abdominal Exam: POSITIVE: Normal Bowel Sounds, Non Tender, Non Distended, Soft, No Organomegaly - Rectal Rectal Exam: POSITIVE: Deferred - External Exam: POSITIVE: Deferred Exam: POSITIVE: Deferred - Extremities Extremities Exam: POSITIVE: Normal Inspection - Back Back Exam: POSITIVE: Normal Inspection - Neurological Neurological Exam: POSITIVE: Alert, Oriented x 3, CN II-XII Intact, No Facial Droop, Speech Intact / Clear - Psychiatric Psychiatric Exam: POSITIVE: Normal Affect Patient Problems - Patient Problem List (1) COPD exacerbation Status: Acute Code(s): J44.1 - Chronic obstructive pulmonary disease with ( acute) exacerbation Category: Medical (2) Dehydration Status: Acute Code(s): E86.0 - Dehydration Category: Medical (3) Essential hypertension Status: Acute Onset Date: 10/14/12 Code(s): I10 - Essential (primary) hypertension Category: Medical (4) Diabetes Status: Acute Code(s): E11.9 - Type 2 diabetes mellitus without complications Category: Medical (5) Weakness Status: Acute Code(s): R53.1 - Weakness Category: Medical (6) Coronary artery disease Status: Acute Code(s): I25.10 - Atherosclerotic heart disease of [place] coronary artery without angina pectoris Category: Medical
[2018-08-02] MEDS: FLUTICASONE PROPIONATE 16 GRAM (120 SPRAYS / BOTTLE) ENOS SCH (08:55)
[2018-08-02] MEDS: Insulin Glargine SoloStar Inj 100 UNIT/ML INSULN.PEN SUBCUT SCH (08:56)
[2018-08-02] MEDS: Insulin Lispro Flexpen 300 UNIT/3 ML INSULN.PEN SUBCUT SCH (09:00)
[2018-08-02 09:32] VITALS: BP 133/57; TEMP 97.1; O2SAT 94
--- NOTE | 2018-08-03 09:49 | OT PM DAY ---
Diagnosis : Weakness/Falls PM - Occupational Therapy (Brief Assessment of Swallowing Abilities) S: The patient reports at one point she needed the thickened liquids. About a year ago after her neck surgery she was having a lot of difficulty swallowing. The patient states that sometimes she still has difficulty swallowing and coughs and chokes at times. She was wondering if she still needed the thickened liquid. O: OT did a brief assessment of the patient's swallowing abilities. The therapist also talked to Dr. Castellon about how the patient's x-rays looked and he did not feel like it looked like aspiration pneumonia secondary to it being in bilateral pleura. He stated it looked like typical pneumonia. Pre-Swallow Assessment: Alertness and responsiveness: The patient was alert and responsive. Reliable responses: The patient had reliable yes and no responses. Nutrition and intake: The patient is usually on a regular diet with thin liquids. She eats things like cheeseburgers and regular food type items and reports that she typically does not have difficulty with these foods. The patient does do effortful swallows during eating if something is a little more difficult. Gag reflex: The patient had a good gag reflex. Laryngeal elevation: Laryngeal elevation is approximately 80%. She may have some mild weakness there. Swallow Assessment: The patient was drinking 7-up in an angled chair at approximately 60 degrees of extension when the therapist arrived. She was not coughing or choking when she was drinking the liquid. The patient states she sometimes coughs more when she is in a chair in a reclined position. We assessed the patient for the rest of the assessment in an upright position. The patient took several sips of her 7- up and some apple juice without external signs of aspiration. She demonstrated doing some effortful swallows at times. We had the patient drink liquid and eat a peach cup with liquid and the peaches combined for a mixed texture. The patient did not demonstrate any aspiration symptoms. A: The main area of concern is the patient's positioning during eating. She has been choking and coughing in a reclined position. The patient knows that she is to sit upright and complete effortful swallows and or a chin tuck if things feel like they are going down the wrong tube. Staff was also educated that the patient needed to remain in an upright position in order to complete all food and liquid intake. The patient did not demonstrate any aspiration symptoms today with 16 ounces of fluid and a whole peach cup. RECOMMENDATIONS: 1. The patient should sit in an upright position for all food and liquid intake. 2. The patient is to complete effortful swallows or chin tucks if she is struggling a little bit with the food texture or liquid. P: Continue seeing patient BID during the week and one time per day over the weekend until discharge. MTDD
== END 2018-08-02 08:41 | disposition swing bed (61) | DRG 191 ==
LOC: ER 16:27 → MED/SURG 19:33
PROVIDERS: ADMIT Internal Medicine; ATTEND Internal Medicine

== ENCOUNTER 2019-01-31 22:36 | Observation (INO) ==
[2019-01-31] MEDS ORDERED: Sodium Chloride 0.9% 1,000 ML PRIMARY IV ONE (22:46)
--- NOTE | 2019-01-31 22:49 | EKG ---
[address] [place] [address] Measurements Intervals [place] Rate: 98 P: 57 MO: 142 QRS: -34 QRSD: 93 T: 85 QT: 334 QTc: 389 Interpretive Statements SINUS RHYTHM LEFT AXIS DEVIATION NONSPECIFIC T-WAVE ABNORMALITY Compared to ECG 07/29/2018 14:56:55 Left-axis deviation now present T-wave abnormality now present Myocardial infarct finding no longer present Electronically Signed On 02-01-19 15:23:29 MDT by Shay Núñez [email or web address]
[2019-01-31 22:52] LABS: BASOPHILS # (AUTO) 0.04 10*3/UL; BASOPHILS % (AUTO) 0.5 % (0-1); EOSINOPHILS # (AUTO) 0.42 10*3/UL; EOSINOPHILS % (AUTO) 5.6 % (0-8); Hematocrit [HCT] 41.9 % (37.0-47.0); Hemoglobin [HGB] 14.3 g/dL (12.0-16.0); LYMPHOCYTES # (AUTO) 2.58 10*3/uL; MEAN CORPUSCULAR HEMOGLOBIN 30.4 PG (27-31); MEAN CORPUSCULAR HGB CONC 34.1 g/dL (33-37); MEAN PLATELET VOLUME 9.7 FL (7.4-12.2); MONOCYTES # (AUTO) 0.45 10*3/UL (0.3-0.8); NEUTROPHILS # (AUTO) 3.99 10*3/UL; NEUTROPHILS % (AUTO) 53.4 % (50-80); RED BLOOD COUNT 4.71 10^6/uL (4.20-5.40)
[2019-01-31 22:57] LABS: PLATELET MORPHOLOGY COMMENT NORMAL MORPHOLOGY (NORM); RBC MORPHOLOGY COMMENT NORMAL MORPHOLOGY (NORM); WBC MORPHOLOGY COMMENT NORMAL MORPHOLOGY (NORM)
[2019-01-31 23:02] LABS: BUN/CREATININE RATIO 31.53 (6-20); SERUM ALBUMIN 4.1 g/dL (3.5-4.8)
[2019-01-31] MEDS: NITROGLYCERIN 0.4 MG SL TAB (BOTTLE OF 3) SL PRN ×2 (23:22→23:32)
[2019-01-31] MEDS ORDERED: Magnesium Sulfate 1gm (Premix) 1 GM/100 ML BAG IV ONE (23:42)
[2019-02-01] MEDS ORDERED: oxyCODONE-ACETAMINOPHEN 5-325 TAB PO PRN (00:47)
[2019-02-01] MEDS ORDERED: NITROGLYCERIN 0.4 MG SL TAB (BOTTLE OF 3) SL PRN (00:47)
[2019-02-01] MEDS ORDERED: DULOXETINE 60 MG CAPSULE PO SCH (00:47)
[2019-02-01] MEDS ORDERED: LIDOCAINE W/ SODIUM BICARB 0.5 ML SYR SUBD PRN (00:47)
[2019-02-01] MEDS ORDERED: CALCIUM CARBONATE 500 MG (TUMS) CHEWABLE TABLET PO PRN (00:47)
[2019-02-01 01:10] LABS: URINE SAMPLE TYPE CLEAN CATCH URINE; URINE SPECIFIC GRAVITY - MAN 1.014
[2019-02-01 01:14] LABS: AMPHETAMINE SCREEN NEGATIVE (NEG); CANNABINOID SCREEN,URINE NEGATIVE (NEG); COCAINE SCREEN NEGATIVE (NEG); METHADONE URINE SCREEN NEGATIVE (NEG); METHAMPHETAMINES SCREEN,URINE NEGATIVE (NEG); OPIATE SCREEN,URINE NEGATIVE (NEG)
[2019-02-01] MEDS: ASPIRIN EC 81 MG TABLET PO SCH ×2 (01:31→15:19)
[2019-02-01] MEDS: LISINOPRIL 10 MG TABLET PO SCH ×2 (01:31→15:19)
[2019-02-01] MEDS: Sodium Chloride 0.9% 1,000 ML PRIMARY IV SCH ×2 (01:32→10:10)
--- NOTE | 2019-02-01 01:50 | PDOC ---
Chest Pain HPI - General Chief Complaint: Chest Pain Stated Complaint: Chest Pain with high blood pressure Date Seen by Provider: 01/31/19 Time Seen by Provider: 22:40 Source: Patient, EMS Exam Limitations: POSITIVE: No limitations Treatment Prior to Arrival: REPORTS: Nitroglycerin (1 sublingual nitroglycerin per EMS), Aspirin (4 baby aspirin) Nurse's Notes Reviewed & Considered: Yes EMS Report Reviewed & Considered: Verbal - History of Present Illness Initial Comments: The patient is a 68-year-old female who is brought to the emergency department by ambulance with complaints of chest pain. She reports that she has had upper respiratory symptoms for the past 3 weeks. She has completed several rounds of antibiotics and is on her third round of antibiotics currently. She states that approximately an hour prior to arrival here in the emergency department she had onset of pain in her chest which radiated to her left arm. Her blood pressure was also significantly elevated at home. EMS was subsequently called. When EMS first arrived on scene her initial blood pressure was 220/110. Because of her complaints of chest pain a 12-lead EKG was done which did not show any obvious ST segment elevation or depression. She did receive 4 baby aspirin as well as 1 dose of sublingual nitroglycerin in route. Her blood pressure had come down to the 170s systolic after administration of the first dose of nitroglycerin. Her pain initially at home was a 9 out of 10. Her pain is coming down here in the emergency department. - Patient Home Medications Home Medications: Home Medications Cetirizine HCl [Zyrtec] 10 mg ORAL QD #30 tab 12/07/16 Pen Needle, Diabetic [Pen Needle] 1 ea MC QID #1 box 12/07/16 Fluticasone Propionate [Flonase Allergy Relief] 2 spr ANTHONY DAILY #1 spr 04/05/17 Cholecalciferol (Vitamin D3) [Vitamin D3] 1 cap PO QD #30 cap 06/07/17 Oxycodone HCl/Acetaminophen [Oxycodone-Acetaminophen 5-325] 1 tab PO Q6H #120 tab 06/07/17 aspirin 81 mg tablet,delayed release 81 mg PO QDAY tab 08/03/17 cyclobenzaprine 10 mg tablet 10 mg PO TID #60 tab 08/11/17 albuterol sulfate HFA 90 mcg/actuation aerosol inhaler 2 puff INH Q4-6H PRN #2 device 09/20/17 insulin aspart U- 100 100 unit/mL subcutaneous solution 5 unit SUBCUT TIDWM #1 vial 01/28/18 blood sugar diagnostic strips 1 strip MISCELLANEOUS TID #100 strip 02/01/18 pravastatin 80 mg tablet 1 tab PO DAILY #90 tab 04/04/18 dulaglutide 0.75 mg/0.5 mL subcutaneous pen injector 0.75 mg SUBCUT WEEKLY #2 ml 04/13/18 lisinopril 10 mg tablet 10 mg PO QDAY #30 tab 04/13/18 metronidazole 0.75 % topical gel 1 applic TOPICAL BID #45 g 04/13/18 metoprolol tartrate 25 mg tablet 25 mg PO BID 05/06/18 ergocalciferol (vitamin D2) 50,000 unit capsule 1 unit PO 2xw #16 unit 06/06/18 esomeprazole magnesium 40 mg capsule,delayed release 1 tab-cap PO DAILY #30 cap 07/14/18 ezetimibe 10 mg tablet 10 mg PO DAILY #30 tab 07/14/18 duloxetine 60 mg capsule,delayed release 120 mg ORAL QD #60 cap 07/15/18 fluticasone 50 mcg/actuation nasal spray,suspension 2 spr ANTHONY DAILY #1 spr 07/15/18 Isosorbide Mononitrate ER [Imdur] 30 mg PO DAILY #30 tab.sr.24h 08/05/18 Polyethylene Glycol 3350 17 g PO QDAY PRN #30 ea 08/05/18 levothyroxine 200 mcg tablet 200 mcg PO QDAY #30 tab 09/07/18 nystatin 100,000 unit/gram topical powder 1 applic TOPICAL TID #1 ea 10/12/18 pregabalin 150 mg capsule 150 mg PO TID #90 cap 11/02/18 Tresiba FlexTouch U-100 insulin 100 unit/mL (3 mL) subcutaneous pen 45 unit SUBCUT BID #15 ml NS 12/05/18 fluconazole 100 mg tablet 100 mg PO QDAY #5 tab 12/23/18 methylprednisolone 4 mg tablets in a dose pack See Rx Instructions PO PER PKG DIR #21 tab 01/05/19 oxycodone-acetaminophen 5 mg-325 mg tablet 1 tab PO Q4-6H PRN #120 tab 01/05/19 ipratropium-albuterol 0.5 mg-3 mg(2.5 mg base)/3 mL nebulization soln 3 ml INHALATION QID PRN 14 Days #30 vial 01/20/19 phenazopyridine 200 mg tablet 200 mg PO TID PRN #9 tab 01/20/19 - Patient Allergies Allergies/Adverse Reactions: Allergies Allergy/AdvReac Type Severity Reaction Status Date / Time codeine AdvReac NAUSEA Verified 01/31/19 22:42 Past Medical History - heen HEENT History: Dentures/Partials Additional HEENT History: Wears trifocals, wears upper dentures, lower dentures need to be refitted. Cardiovascular History: Hypertension, Hyperlipidemia Additional Cardiovasular History: SOB-ON OXYGEN AT NIGHT AND SOMETIMES IN DAYTIME WHEN TIRED Respiratory History: Asthma, Home Oxygen Use, Home CPAP Use Additional Respiratory History: OXYGEN AT NIGHT WITH CPAP Gastrointestinal History: GERD Genitourinary History: Recurrent UTI Endocrine History: Type 2 Diabetes (insulin), Hypothyroidism Musculoskeletal History: Back Pain Prosthesis or Implant: Yes ([facility]) Additional Musculoskeletal History: neck surgery 07-12-14 Neurological History: TIA, Frequent Headaches Additional Neurological History: reports chronic peripheral neuropathy in feet. SALAZAR AFTER NECK SURGERY Blood Disorders: Denies History Psychiatric History: Depression, Anxiety Disorders History of Sexually Transmitted Diseases: No Female Reproductive History: Denies History Obstetrical History: Denies History Cancer History: Denies History In Past Year Been Physically Harmed or Verbally Threatened: No History of MDRO: Unknown History of Other Communicable Diseases: No Tobacco Use: Never Smoker Alcohol Use: None In the Past 12 Months, Have Used or Abuse Any Substance: None Previous Surgical History: Yes Type / Date of Surgery: BILAT EYE SURGERY RETNIA , DENTAL EXTRACTION, PARTIAL HYSTERECTOMY, TONSILLECTOMY, APPENDECTOMY, CHOLECYSTECTOMY, CERVICAL FUSION 06/28, LEFT CTR, BILAT CATARACTS, LEFT GANGLION CYST HAND, Anesthesia Reactions: No Malignant Hyperthermia: No Significant Family History: Asthma, Heart disease, Cancer, Diabetes, Lung disease Past Medical History Reviewed: Reviewed - No Changes ROS - Limitations ROS Limitations: No Limitations Constitution: REPORTS: Chills. DENIES: Fever Cardiovascular: REPORTS: Chest Pain, Blood Pressure Problem. DENIES: Edema Respiratory: REPORTS: Cough Non Productive, Shortness Of Breath Neurological: REPORTS: Headache Gastrointestinal: REPORTS: Nausea, Vomitting Endocrine: REPORTS: Fatigue Musculoskeletal: REPORTS: Muscle Aches Genitourinary: REPORTS: Denies Symptoms Eyes: REPORTS: Denies Symptoms ENT: REPORTS: Congestion, Sore Throat Skin: DENIES: Rash Chest Pain PE - General Appearance General Appearance: REPORTS: Alert, Cooperative, No Acute Distress - HEENT HEENT: POSITIVE: Head Inspection Nml, Eyes Inspection Nml, Ears Inspection Nml, Nose Inspection Nml, Pharynx Inspect. Nml - Respiratory Respiratory: REPORTS: No Respiratory Distress, Breath Sounds Normal - Cardiovascular Cardiovascular: REPORTS: Regular Rate and Rhythm, Heart Sounds Normal Peripheral Pulses: Dorsalis-pedis (R): 2+, Dorsalis-pedis (L): 2+ - Abdomen Abdomen: Soft: (All Quadrants), Denies Tenderness: (All Quadrants), No Guarding: (All Quadrants), No Rebound: (All Quadrants), No Distention: (All Quadrants) - Skin Skin: REPORTS: Intact, No Rash - Extremities Extremity: Normal ROM: (All Extremities), Normal Inspection: (All Extremities) - Neurological / Psychological Neurological: POSITIVE: Oriented X3, tarper Normal As Tested, Motor Normal, Sensation Normal Chest Pain Progress - Results Reviewed by me Xrays/CTs/US Reviewed by me: Yes Radiology Findings: Chest x-ray shows no acute findings. Lab Results Reviewed by Me: Yes CBC and BMP: 01/31/19 22:30 01/31/19 22:30 Lab Results:: Laboratory Results 01/31/19 01/31/19 01/31/19 22:30 22:30 22:30 WBC 7.49 RBC 4.71 Hgb 14.3 Hct 41.9 MCV 89.0 MCH 30.4 MCHC 34.1 RDW Std Deviation 43.7 RDW Coeff of Nicole 13.7 Plt Count 350 MPV 9.7 Immature Gran % (Auto) 0.1 Neut % (Auto) 53.4 Lymph % (Auto) 34.4 [place] % (Auto) 6.0 Eos % (Auto) 5.6 Baso % (Auto) 0.5 Immature Gran # (Auto) 0.01 Neut # (Auto) 3.99 Lymph # (Auto) 2.58 [place] # (Auto) 0.45 Eos # (Auto) 0.42 Baso # (Auto) 0.04 WBC Morphology Comment Normal morphology Plt Morphology Comment Normal morphology RBC Morph Comment Normal morphology D-Dimer Sodium 135 Potassium 4.8 Chloride 100 Carbon Dioxide 26 Anion Gap 9 BUN 41 H Creatinine 1.3 H Estimated GFR 41 BUN/Creatinine Ratio 31.53 H Glucose 179 H Calculated Osmolality 293.0 H Calcium 10.1 Magnesium 1.5 L Total Bilirubin 0.3 AST 20 ALT 9 Alkaline Phosphatase 113 CK-MB (CK-2) 4.83 Troponin I < 0.012 C-Reactive Protein 0.9 NT-Pro-B Natriuret Pep 105 Total Protein 7.9 Albumin 4.1 Globulin 3.7 Albumin/Globulin Ratio 1.10 L Amylase 101 Lipase 225 01/31/19 23:00 WBC RBC Hgb Hct MCV MCH MCHC RDW Std Deviation RDW Coeff of Nicole Plt Count MPV Immature Gran % (Auto) Neut % (Auto) Lymph % (Auto) [place] % (Auto) Eos % (Auto) Baso % (Auto) Immature Gran # (Auto) Neut # (Auto) Lymph # (Auto) [place] # (Auto) Eos # (Auto) Baso # (Auto) WBC Morphology Comment Plt Morphology Comment RBC Morph Comment D-Dimer 0.86 H Sodium Potassium Chloride Carbon Dioxide Anion Gap BUN Creatinine Estimated GFR BUN/Creatinine Ratio Glucose Calculated Osmolality Calcium Magnesium Total Bilirubin AST ALT Alkaline Phosphatase CK-MB (CK-2) Troponin I C-Reactive Protein NT-Pro-B Natriuret Pep Total Protein Albumin Globulin Albumin/Globulin Ratio Amylase Lipase EKG Interpreted/Reviewed By Me:: Yes EKG Interpretation:: POSITIVE: Normal Sinus Rhythm, Normal Rate, Normal QRS, Normal ST/T - Patient's Progress MDM / ED Course: The patient's blood pressure was still elevated on arrival in the 150s over 70s. Her blood pressure had been markedly elevated on scene with a systolic blood p ressure over 200. She was still complaining of chest pain on arrival here to the emergency department and did receive 2 additional doses of sublingual nitroglycerin. She had received aspirin per EMS. Her pain did improve markedly here in the emergency department. Her blood work reveals a normal white blood cell count and normal CRP. Her respiratory panel was negative. Chest x-ray shows no acute findings. Her troponin is normal. Her d-dimer is mildly elevated at 0.8. Her BUN is 41 with a creatinine of 1.3. Her baseline creatinine is usually around 1.2. She did receive 1 L bolus of normal saline. After 2 additional doses of sublingual nitroglycerin her blood pressure did come down into the 130s over 70s. These findings are discussed with the patient. The patient will be admitted for further evaluation per Dr. Jewell. The patient is in agreement with this plan. - Consult Counseled: POSITIVE: Patient, Family, RE: Lab Results, RE: Radiology Results, RE: DX, RE: Need for F/U Patient Care Time - Estimated PCT Patient Care Time (In Minutes): 35 Vital Signs - Recent Vital Signs Vital Signs: Vital Signs (Last 8 hours) Temp Pulse Resp BP Pulse Ox 01/31/19 22:36 98.2 F 98 22 180/80 91 - VS Reviewed Vital Signs Reviewed: Yes Discharge Clinical Impression: COPD (chronic obstructive pulmonary disease), Diabetes, Chest pain, Dehydration Discharge Disposition: Discharged to Home Condition: Fair Date Decision to Admit to Inpatient: 02/01/19 Time Decision to Admit to Inpatient: 00:20
[2019-02-01] MEDS: LEVOTHYROXINE 100 MCG TABLET PO SCH (04:50)
[2019-02-01] MEDS: ALBUTEROL SULFATE 8.5 GM HFA INHALER INH PRN ×3 (06:52→14:53)
[2019-02-01] MEDS: Insulin Lispro Flexpen 300 UNIT/3 ML INSULN.PEN SUBCUT SCH ×3 (06:57→16:02)
--- NOTE | 2019-02-01 08:21 | DI ---
XR CXR 1VW,01/31/2019 10:46 PM: Clinical History: Chest pain Previous Exam: July 29, 2018 Findings: A single frontal radiograph of the chest is obtained, and demonstrate clear lungs. The cardiomediasti num and bony thorax are unremarkable. There is anterior screw and plate fixation of of the cervical s pine. Impression: No acute cardiopulmonary disease.
[2019-02-01] MEDS: Pregabalin Cap 150mg capsule PO SCH ×3 (09:00→21:13)
[2019-02-01 11:02] LABS: CLARITY,URINE CLEAR (CLEAR); COLOR,URINE YELLOW (Y); PH,URINE 5.5 (5.0-8.5); URINE SAMPLE TYPE CLEAN CATCH URINE
[2019-02-01 11:03] LABS: BILIRUBIN,URINE NEGATIVE (NEG); GLUCOSE, URINE (UA) NEGATIVE (NEG); OCCULT BLOOD,URINE SM (NEG); PROTEIN,URINE >300 mg/dl (NEG); UROBILINOGEN,URINE 0.2 EU/dL (0.2)
[2019-02-01 11:05] LABS: BACTERIA,URINE MANY; SQUAMOUS EPITHELIAL CELL,UR FEW; WBC,URINE 15-25
[2019-02-01] MEDS: CYCLOBENZAPRINE 10 MG TABLET PO SCH ×3 (12:20→21:12)
[2019-02-01] MEDS: LORATADINE 10 MG TABLET PO SCH (15:18)
[2019-02-01] MEDS: EZETIMIBE 10 MG TABLET PO SCH (15:19)
[2019-02-01] MEDS: Pravastatin 80mg Tab PO SCH (15:19)
[2019-02-01] MEDS: DULOXETINE 60 MG CAPSULE PO SCH (15:19)
[2019-02-01] MEDS: INSULIN DEGLUDEC SUBCUT SCH ×2 (15:27→21:13)
[2019-02-01] MEDS: ISOSORBIDE MONONITRATE 30 MG SR 24H TABLET PO SCH (15:27)
[2019-02-01] MEDS: Metoprolol TARTRATE Tab 25 MG TAB PO SCH ×2 (15:28→21:12)
--- NOTE | 2019-02-01 16:06 | PDOC ---
HPI - History of Present Illness Date of Service: 02/01/19 Time of Service: 10:30 Chief Complaint: Chest pain History of Present Illness: This very pleasant 68-year-old female with known coronary artery disease with positive stress test in March 2018 subsequent heart catheterization per her history, with lesion apparently that did not require stent, diabetes mellitus type II, family history of heart disease, high cholesterol, amongst other me dical issues, who comes in stating that she developed chest pain last night around 9 PM or so. She states that it started while she was drinking coffee. She also states to me that she was a very stressful situation in which her son whom she states is an alcoholic was having an argument with the patient's granddaughter. The patient had developed substernal chest pain at that time, was sweating on her forehead, and had some nausea. She did not have any shortness of breath. She called the emergency room and was advised that she should come in for evaluation. When she got here via ambulance, the patient was given nitroglycerin and medications in the emergency room which seemed to help her feel better. She was admitted for observation and a stress test was ordered. She does not smoke. Her chest pain is resolved now. She states her stress is been very bad lately. She also admits to having heartburn but is not on a proton pump inhibitor at home. Past Medical History Medical History: 1. Diabetes on insulin. 2. Hypertension. 3. Hyperchol esterolemia. 4. GERD. 5. Hypothyroidism. 6. History of retinal hemorrhage on the left. 7. Coronary artery disease with angiogram done in April 2018 which showed, mild to moderate pulmonary hypertension, normal LV function, two-vessel coronary artery disease of the nondominant right coronary artery and of small caliber second diagonal branch of the left anterior descending. 8. History of swallowing difficulty secondary to neck surgery improved. 9. History of depression. 10. Obstructive sleep apnea on oxygen at night Surgical History: 1. Hysterectomy. 2. Cholecystectomy. 3. Appendectomy. 4. Anterior cervical fusion. 5. Tonsillectomy. 6. History of for carpal tunnel release. 7. Heart catheterization, April 2018 Pertinent Family History: Significant for heart disease Past Social History: She does not smoke, does not drink, no drugs. . Has 4 children. Tobacco Use: Never Smoker In the Past 12 Months, Have Used or Abuse Any of the Following Substance: None Alcohol Use: None Medication / Allergies Home Medications: Home Medications Medication Instructions Recorded Confirmed Type Cetirizine HCl [Zyrtec] 10 mg ORAL QD #30 tab 12/07/16 01/31/19 Rx Pen Needle, Diabetic [Pen Needle] 1 ea MC QID #1 box 12/07/16 01/31/19 Rx Fluticasone Propionate [Flonase 2 spr ANTHONY DAILY #1 spr 04/05/17 Clinic Allergy Relief] Oxycodone HCl/Acetaminophen 1 tab PO Q6H #120 tab 06/07/17 Clinic [Oxycodone-Acetaminophen 5-325] aspirin 81 mg tablet,delayed 81 mg PO QDAY tab 08/03/17 01/31/19 History release cyclobenzaprine 10 mg tablet 10 mg PO TID #60 tab 08/11/17 01/31/19 Rx albuterol sulfate HFA 90 2 puff INH Q4-6H PRN #2 device 09/20/17 01/31/19 Rx mcg/actuation aerosol inhaler insulin aspart U- 100 100 unit/mL 5 unit SUBCUT TIDWM #1 vial 01/28/18 01/31/19 Rx subcutaneous solution blood sugar diagnostic strips 1 strip MISCELLANEOUS TID #100 02/01/18 01/31/19 Rx strip pravastatin 80 mg tablet 1 tab PO DAILY #90 tab 04/04/18 01/31/19 Rx dulaglutide 0.75 mg/0.5 mL 0.75 mg SUBCUT WEEKLY #2 ml 04/13/18 01/31/19 Rx subcutaneous pen injector lisinopril 10 mg tablet 10 mg PO QDAY #30 tab 04/13/18 01/31/19 Rx metronidazole 0.75 % topical gel 1 applic TOPICAL BID #45 g 04/13/18 01/31/19 Rx metoprolol tartrate 25 mg tablet 25 mg PO BID 05/06/18 01/31/19 History esomeprazole magnesium 40 mg 1 tab-cap PO DAILY #30 cap 07/14/18 01/31/19 Rx capsule,delayed release ezetimibe 10 mg tablet 10 mg PO DAILY #30 tab 07/14/18 01/31/19 Rx duloxetine 60 mg capsule,delayed 120 mg ORAL QD #60 cap 07/15/18 01/31/19 Rx release fluticasone 50 mcg/actuation nasal 2 spr ANTHONY DAILY #1 spr 07/15/18 01/31/19 Clinic spray,suspension Isosorbide Mononitrate ER [Imdur] 30 mg PO DAILY #30 tab.sr.24h 08/05/18 01/31/19 Rx Polyethylene Glycol 3350 17 g PO QDAY PRN #30 ea 08/05/18 01/31/19 Rx levothyroxine 200 mcg tablet 200 mcg PO QDAY #30 tab 09/07/18 01/31/19 Rx nystatin 100,000 unit/gram topical 1 applic TOPICAL TID #1 ea 10/12/18 01/31/19 Rx powder pregabalin 150 mg capsule 150 mg PO TID #90 cap 11/02/18 01/31/19 Rx Tresiba FlexTouch U-100 insulin 45 unit SUBCUT BID #15 ml NS 12/05/18 01/31/19 Rx 100 unit/mL (3 mL) subcutaneous pen glycopyrrolate 9 mcg-formoterol 10.7 gm Hfa.Aer.Ad#1 Samples 01/05/19 01/31/19 Sample 4.8 mcg HFA aerosol inhaler oxycodone-acetaminophen 5 mg-325 1 tab PO Q4-6H PRN #120 tab 01/05/19 01/31/19 Rx mg tablet ipratropium-albuterol 0.5 mg-3 3 ml INHALATION QID PRN 14 Days 01/20/19 01/31/19 Rx mg(2.5 mg base)/3 mL nebulization #30 vial soln Allergies/Adverse Reactions: Allergies Allergy/AdvReac Type Severity Reaction Status Date / Time codeine AdvReac NAUSEA Verified 01/31/19 22:42 Review of Systems - Review of Systems All Systems: Reviewed & No Additional Complaints Except as Stated (I did a 12 point review systems and it was negative other than that discussed below and in the history of present illness.) - Respiratory Respiratory: REPORTS: Negative System Review - Cardiovascular Cardiovascular: REPORTS: See HPI - Gastrointestinal Gastrointestinal / Abdominal: REPORTS: Heartburn - Psychiatric Psychiatric: REPORTS: Anxiety - Additonal Details Additional ROS Details: Although the patient denied any bladder issues, the nurse reported to me that the patient has had increased urinary frequency and foul-smelling urine. Exam - Vitals Vital Signs: Vital Signs Temperature 97.8 F Temperature Source Temporal Artery Scan Pulse Rate [Pulse Oximeter] 86 Pulse Rate 87 Respiratory Rate 20 Blood Pressure [Right Arm] 134/56 Blood Pressure 165/96 Pulse Ox 89 Oxygen Flow Rate 2 Oxygen Delivery Method Nasal Cannula Height 5 ft 5 in Weight 192 lb - General General Appearance: No Acute Distress, Cooperative - Head Head Exam: Normal Inspection, Normocephalic, Atraumatic - Eye Eye Exam: POSITIVE: No Scleral Icterus - ENT ENT Exam: POSITIVE: Mucous Membranes Moist - Neck Neck Exam: JVP is not Raised - Respiratory Respiratory Exam: POSITIVE: Clear to Auscultation - Bilaterally, Breathing Non Labored, Crackles (Very fine crackles in the bases bilaterally) - Cardiovascular Cardiovascular Exam: POSITIVE: RRR, No Murmur, No Clicks, No Gallops, No Rubs, No JVD - GI/Abdominal GI/Abdominal Exam: POSITIVE: Normal Bowel Sounds, Non Tender, Non Distended, Soft - Rectal Rectal Exam: POSITIVE: Deferred - External Exam: POSITIVE: Deferred Exam: POSITIVE: Deferred - Extremities Extremities Exam: POSITIVE: No Clubbing Present, No Edema Present, No Cyanosis Present - Back Back Exam: POSITIVE: No CVA Tenderness - Neurological Neurological Exam: POSITIVE: Alert, Oriented x 3, No Facial Droop, Speech Intact / Clear, Moves All Extremities Equally - Psychiatric Psychiatric Exam: POSITIVE: Normal Affect, Normal Mood Results - Labs CBC and BMP: 01/31/19 22:30 01/31/19 22:30 Additional Lab Results: Laboratory Results 01/31/19 01/31/19 01/31/19 22:30 22:30 22:30 WBC 7.49 RBC 4.71 Hgb 14.3 Hct 41.9 MCV 89.0 MCH 30.4 MCHC 34.1 RDW Std Deviation 43.7 RDW Coeff of Nicole 13.7 Plt Count 350 MPV 9.7 Immature Gran % (Auto) 0.1 Neut % (Auto) 53.4 Lymph % (Auto) 34.4 [place] % (Auto) 6.0 Eos % (Auto) 5.6 Baso % (Auto) 0.5 Immature Gran # (Auto) 0.01 Neut # (Auto) 3.99 Lymph # (Auto) 2.58 [place] # (Auto) 0.45 Eos # (Auto) 0.42 Baso # (Auto) 0.04 WBC Morphology Comment Normal morphology Plt Morphology Comment Normal morphology RBC Morph Comment Normal morphology D-Dimer Sodium 135 Potassium 4.8 Chloride 100 Carbon Dioxide 26 Anion Gap 9 BUN 41 H Creatinine 1.3 H Estimated GFR 41 BUN/Creatinine Ratio 31.53 H Glucose 179 H Calculated Osmolality 293.0 H Calcium 10.1 Magnesium 1.5 L Total Bilirubin 0.3 AST 20 ALT 9 Alkaline Phosphatase 113 CK-MB (CK-2) 4.83 Troponin I < 0.012 C-Reactive Protein 0.9 NT-Pro-B Natriuret Pep 105 Total Protein 7.9 Albumin 4.1 Globulin 3.7 Albumin/Globulin Ratio 1.10 L Amylase 101 Lipase 225 Ur Collection Type Urine Color Urine Clarity Urine pH Ur Specific [place] U Specif Grav (Refrac) Urine Protein Urine Glucose (UA) Urine Ketones Urine Occult Blood Urine Nitrate Urine Bilirubin Urine Urobilinogen Ur Leukocyte Esterase Urine RBC Urine WBC Ur Squamous Epith Cells Ur Renal Epithelial Cell Urine Crystals Urine Bacteria Urine Casts Urine Mucus Urine Trichomonas Urine Yeast Ur Culture Indicated? Urine Opiates Screen Ur Buprenorphine Ur Oxycodone Screen Urine Methadone Screen Ur Propoxyphene Screen Barbiturate Screen U Tricyclic Antidepress Phencyclidine Screen Amphetamines Screen U Methamphetamines Scrn Benzodiazepines Screen Cocaine Screen U Marijuana (THC) Screen 01/31/19 02/01/19 02/01/19 23:00 00:58 01:00 WBC RBC Hgb Hct MCV MCH MCHC RDW Std Deviation RDW Coeff of Nicole Plt Count MPV Immature Gran % (Auto) Neut % (Auto) Lymph % (Auto) [place] % (Auto) Eos % (Auto) Baso % (Auto) Immature Gran # (Auto) Neut # (Auto) Lymph # (Auto) [place] # (Auto) Eos # (Auto) Baso # (Auto) WBC Morphology Comment Plt Morphology Comment RBC Morph Comment D-Dimer 0.86 H Sodium Potassium Chloride Carbon Dioxide Anion Gap BUN Creatinine Estimated GFR BUN/Creatinine Ratio Glucose Calculated Osmolality Calcium Magnesium Total Bilirubin AST ALT Alkaline Phosphatase CK-MB (CK-2) Troponin I C-Reactive Protein NT-Pro-B Natriuret Pep Total Protein Albumin Globulin Albumin/Globulin Ratio Amylase Lipase Ur Collection Type Clean catch urine Clean catch urine Urine Color Yellow Urine Clarity Clear Urine pH 5.5 Ur Specific [place] 1.020 U Specif Grav (Refrac) 1.014 Urine Protein >300 A Urine Glucose (UA) Negative Urine Ketones Negative Urine Occult Blood Sm Urine Nitrate Positive A Urine Bilirubin Negative Urine Urobilinogen 0.2 Ur Leukocyte Esterase Negative Urine RBC 1-3 Urine WBC 15-25 Ur Squamous Epith Cells Few Ur Renal Epithelial Cell None Urine Crystals None Urine Bacteria Many H Urine Casts None Urine Mucus None Urine Trichomonas None Urine Yeast None Ur Culture Indicated? Culture set Urine Opiates Screen Negative Ur Buprenorphine Negative Ur Oxycodone Screen Negative Urine Methadone Screen Negative Ur Propoxyphene Screen Negative Barbiturate Screen Negative U Tricyclic Antidepress Negative Phencyclidine Screen Negative Amphetamines Screen Negative U Methamphetamines Scrn Negative Benzodiazepines Screen Negative Cocaine Screen Negative U Marijuana (THC) Screen Negative 02/01/19 02/01/19 04:55 10:30 WBC RBC Hgb Hct MCV MCH MCHC RDW Std Deviation RDW Coeff of Nicole Plt Count MPV Immature Gran % (Auto) Neut % (Auto) Lymph % (Auto) [place] % (Auto) Eos % (Auto) Baso % (Auto) Immature Gran # (Auto) Neut # (Auto) Lymph # (Auto) [place] # (Auto) Eos # (Auto) Baso # (Auto) WBC Morphology Comment Plt Morphology Comment RBC Morph Comment D-Dimer Sodium Potassium Chloride Carbon Dioxide Anion Gap BUN Creatinine Estimated GFR BUN/Creatinine Ratio Glucose Calculated Osmolality Calcium Magnesium Total Bilirubin AST ALT Alkaline Phosphatase CK-MB (CK-2) Troponin I < 0.012 < 0.012 C-Reactive Protein NT-Pro-B Natriuret Pep Total Protein Albumin Globulin Albumin/Globulin Ratio Amylase Lipase Ur Collection Type Urine Color Urine Clarity Urine pH Ur Specific [place] U Specif Grav (Refrac) Urine Protein Urine Glucose (UA) Urine Ketones Urine Occult Blood Urine Nitrate Urine Bilirubin Urine Urobilinogen Ur Leukocyte Esterase Urine RBC Urine WBC Ur Squamous Epith Cells Ur Renal Epithelial Cell Urine Crystals Urine Bacteria Urine Casts Urine Mucus Urine Trichomonas Urine Yeast Ur Culture Indicated? Urine Opiates Screen Ur Buprenorphine Ur Oxycodone Screen Urine Methadone Screen Ur Propoxyphene Screen Barbiturate Screen U Tricyclic Antidepress Phencyclidine Screen Amphetamines Screen U Methamphetamines Scrn Benzodiazepines Screen Cocaine Screen U Marijuana (THC) Screen - EKG Data -: EKG Interpreted by Me Rate: Normal EKG Shows Normal: Sinus Rhythm - EKG Data EKG Interpretation: Nonspecific ST-T Wave Changes (In V6.) - Imaging Status: Image Reviewed by Me (Chest x-ray, appears negative on my view for pneumonia.) Assessment and Plan - Patient Problems (1) Chest pain Current Visit: Yes Status: Acute Code(s): R07.9 - Chest pain, unspecified Qualifiers: Chest pain type: precordial pain Qualified Code(s): R07.2 - Precordial pain (2) Diabetes mellitus type II, controlled Current Visit: Yes Status: Acute Code(s): E11.9 - Type 2 diabetes mellitus without complications Qualifiers: Diabetes mellitus care home insulin use: with ferry terminal agent use Diabetes mellitus complication status: without complication Qualified Code(s): E11.9 - Type 2 diabetes mellitus without complications; Z79.4 - termite helper (current) use of insulin (3) GERD (gastroesophageal reflux disease) Current Visit: Yes Status: Chronic Code(s): K21.9 - Gastro-esophageal reflux disease without esophagitis Qualifiers: Esophagitis presence: esophagitis presence not specified Qualified Code(s): K21.9 - Gastro-esophageal reflux disease without esophagitis (4) Hypercholesterolemia Current Visit: Yes Status: Acute Code(s): E78.0 - Pure hypercholesterolemia (5) Hypothyroidism Current Visit: Yes Status: Acute Code(s): E03.9 - Hypothyroidism, unspecified Qualifiers: Hypothyroidism type: unspecified Qualified Code(s): E03.9 - Hypothyroidism, unspecified; E03.9 - Hypothyroidism, unspecified; E03.9 - Hypothyroidism, unspecified (6) Obstructive sleep apnea syndrome Current Visit: Yes Status: Chronic Onset Date: 10/14/12 Code(s): G47.33 - Obstructive sleep apnea (adult) (pediatric) - Assessment / Plan Additional Assessment/Plan Details: Plan: 1. Do serial enzymes and repeat EKG as necessary 2. Aspirin daily. 3. Will continue the patient's home beta vandana but hold for stress test 4. if diagnosis becomes ACS or unstable angina, add therapeutic lovenox or heparin drip, otherwise will dose for DVT prophylaxis if indicated 5. We'll have the patient do a stress test [chemical, I do not think the patient will be able to run on a treadmill] 6. Proton pump inhibitor may be necessary if GERD like symptoms develop. At t his point I will go ahead and initiate. A long-term trial and possible EGD in the future make some sense here 5. Nitroglycerin when necessary for chest pain 6. Morphine if necessary via IV 7. Oxygen if necessary 8. 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 This way we can determine a good plan and disposition after that stress test is done. It is very difficult as this patient has significant risk factors and already has known coronary artery disease by catheter within the last 9 months, but nothing was able to be stented at that time. What remains unclear with two- vessel coronary artery disease is whether the patient would be a candidate for other procedures for her coronary artery disease. I would like to see with the stress test shows to help guide further evaluation with a teacher of gifted students. The patient states to me that she saw a teacher of gifted students recently and she was told that she had an okay bill of health from her heart standpoint. 9. blood sugar monitorin 10. check UA and treat for UTI with symptoms, though this is not likely causing chest pains.
[2019-02-01] MEDS ORDERED: PANTOPRAZOLE 40 MG TABLET PO ONE (16:26)
[2019-02-01] MEDS: cefTRIAXone Inj 2 GM in Sodium Chloride 0.9% 100 ML IV SCH (17:11)
[2019-02-02] MEDS ORDERED: CYCLOBENZAPRINE 10 MG TABLET PO PRN (01:52)
[2019-02-02] MEDS: LEVOTHYROXINE 100 MCG TABLET PO SCH (05:28)
[2019-02-02] MEDS: ALBUTEROL SULFATE 8.5 GM HFA INHALER INH PRN (06:42)
[2019-02-02 07:00] LABS: CHOL/HDL RATIO 8.02 RATIO (0-4.0)
[2019-02-02] MEDS ORDERED: PANTOPRAZOLE 40 MG TABLET PO SCH (07:00)
[2019-02-02] MEDS: Insulin Lispro Flexpen 300 UNIT/3 ML INSULN.PEN SUBCUT SCH ×2 (08:14→12:30)
--- NOTE | 2019-02-02 10:04 | STRESSTEST ---
[facility] Interpretive Statements This is a 68 YO female with known CAD, HTN, hypertrigliceridemia, and family history of CAD who presented with chest pain, atypical story. Ruled out for [place]. Stressed with Shani scan protocol, resting EKG is NSR with non specific T-wave inversions in aVL. During test, occasional PVC. Patient had increased SOB that resolved with caffeine. No chest pain with test. Plan, stress images today, radiology to read stress test. risk stratification based on results of study. [email or web address]
[2019-02-02] MEDS: LORATADINE 10 MG TABLET PO SCH (10:40)
[2019-02-02] MEDS: ASPIRIN EC 81 MG TABLET PO SCH (10:40)
[2019-02-02] MEDS: Pravastatin 80mg Tab PO SCH (10:40)
[2019-02-02] MEDS: EZETIMIBE 10 MG TABLET PO SCH (10:41)
[2019-02-02] MEDS: ISOSORBIDE MONONITRATE 30 MG SR 24H TABLET PO SCH (10:41)
[2019-02-02] MEDS: DULOXETINE 60 MG CAPSULE PO SCH (10:41)
[2019-02-02] MEDS: Metoprolol TARTRATE Tab 25 MG TAB PO SCH (10:42)
[2019-02-02] MEDS: LISINOPRIL 10 MG TABLET PO SCH (10:42)
[2019-02-02] MEDS: Pregabalin Cap 150mg capsule PO SCH (10:43)
--- NOTE | 2019-02-02 12:48 | DI ---
2 DAY LEXISCAN STRESS & REST MYOCARDIAL PERFUSION SCANS, 02/01/2019 12:47 AM : Clinical History: Chest pain Previous Exam: None at this facility. The patient was stressed by Dr. Cleve Macedo The standard Lexiscan protocol was used. Please see the Doctor's report. At the designated time, 35.5 mCi of 99Tc-sestimibi was injected IV. Stress gated tomograms were acquired within one hour of the i njection. For the resting scans, 35.8 mCi was injected IV and resting gated tomograms were acquired in similar fashion. Stress scans were performed on February 01, 2019; the resting scans were performed on February 02, 2019. Quantitative and qualitative analyses were performed. Quantitative analysis was performed with the [facility] [id number] protocols. Very low dose limited CT scans of the chest are o btained through the level of the heart for attenuation correction of the gated stress and rest cardia c SPECT data. Non-attenuated and attenuated scans were processed for review, and the attenuated scans were used for final interpretation of this study. Review of the raw data images and data quality consultant files indicate that these series of examinations ar e of excellent quality. Stress and rest left ventricular chamber sizes are normal. Stress and rest LV EF are 66 % and 66 %, respectively. There is a large moderate intensity reversible defect involving the anterior wall from base to apex in the distribution of the left anterior descending artery. There is some mild hypokinesis with normal ejection fraction. Transient ischemic dilatation ratio is 1.4, with a normal range up to 1.22 for patients stressed wit h the Pascual protocol and up to 1.33 for patients stressed with the Lexiscan protocol. The very low dose CT scans through the level of the heart demonstrate a few coronary artery calcifica tions. Motion artifact limits evaluation of the lungs. There is no mediastinal nor hilar lymphadenopa thy. Reading: Large area of reversibility involving the anterior wall from base to apex most consistent with an isc hemic defect involving the left anterior descending artery. Diffuse hypokinesis and normal ejection fraction.
[2019-02-02] MEDS: INSULIN DEGLUDEC SUBCUT SCH (13:03)
[2019-02-02 15:51] VITALS: BP 130/63; RESP 19; TEMP 98.5; O2SAT 92
--- NOTE | 2019-02-02 15:59 | DCSUMMARY ---
Hospitalization Summary Admit Date: 02/01/2019 Discharge Date: 02/02/19 Primary Diagnosis:: unstable angina Hospital Course: This is a very pleasant 68-year-old female with known coronary artery disease although apparently too small to intervene on in April 2018. He is apparently an RCA system, 2 vessel coronary artery disease with a diagonal branch that was the problem at that time. Patient was treated medically. She was admitted on the with complaint of chest pain. It happened while she was drinking coffee. The story was very atypical for coronary artery disease, but given her significant risk factors, we admitted the patient, she ruled out for myocardial infarction, she still was found to have very uncontrolled hyperglyceridemia and hypertriglyceridemia. The patient had a repeat Lexiscan stress test, and it was positive for a large area of reversible defect consistent with a left anterior descending artery distribution. She also had hypokinesis which was new from her prior stress test. Given these findings, I spoke with cardiology on-call at [facility] and the patient will be transferred for further evaluation. Currently the patient is chest pain-free, but she does have unstable angina so I did ask about heparin and they would like us to hold off on heparin drip at this point. The patient did have some sedation as she is on Lyrica. Somehow got on her medication reconciliation, although she does not take it at home. Patient is also found have urinary tract infection for which she is on Rocephin. She is on day 2 of therapy. The patient denies any nausea or vomiting or shortness of breath. She states that she is agreeable to go on this transfer. Assessment and Plan: 1. As per discharge assessments noted 2. Disposition: Patient is discharged home. 3. Condition on discharge, stable and improved. 4. Diet: regular diet 5. Activities: resume normal activities 6. Follow-Up: 1. See Dr. Pitts one week post discharge from [facility] 7. Medications at the Time of Discharge: Active Medications Generic Name Dose Route Start Last Admin Trade Name Freq PRN Reason Stop Dose Admin Albuterol Sulfate 2 puff 02/01/19 00:47 02/02/19 06:42 Proair Hfa Inhaler INH 2 puff RTQ4H PRN Administration cough Aspirin 81 mg 02/01/19 00:47 02/02/19 10:40 Aspirin Ec PO 81 mg DAILY VAL Administration Calcium Carbonate 1 - 2 tab 02/01/19 00:47 Tums PO QID PRN Heartburn Cyclobenzaprine HCl 10 mg 02/02/19 01:52 Flexeril PO TID PRN Spasms Duloxetine HCl 120 mg 02/01/19 09:00 02/02/19 10:41 Cymbalta PO 120 mg DAILY VAL Administration Ezetimibe 10 mg 02/01/19 09:00 02/02/19 10:41 Zetia PO 10 mg DAILY VAL Administration Sodium Chloride 25 mls @ 200 mls/hr 02/01/19 00:47 Normal Saline 0.9% IV .Post Infusion PRN Flush Ceftriaxone Sodium 2 gm/ 100 mls @ 200 mls/hr 02/01/19 16:00 02/01/19 17:11 Sodium Chloride IV 200 mls/hr Q24H VAL Administration Insulin Human Lispro 5 unit 02/01/19 07:00 02/02/19 12:30 Humalog Flexpen Inj SUBCUT 5 unit TID MEALS [facility] Administration Isosorbide Mononitrate 30 mg 02/01/19 09:00 02/02/19 10:41 Imdur PO 30 mg DAILY [facility] Administration Levothyroxine Sodium 200 mcg 02/01/19 05:30 02/02/19 05:28 Synthroid PO 200 mcg DAILY@0530 [facility] Administration Lidocaine HCl 0.5 ml 02/01/19 00:47 Lidocaine Buffered Inj SUBD ONCE PRN IV Starts Lisinopril 10 mg 02/01/19 00:47 02/02/19 10:42 Prinivil PO 10 mg DAILY VAL Administration Loratadine 10 mg 02/01/19 09:00 02/02/19 10:40 Claritin PO 10 mg DAILY [facility] Administration Metoprolol Tartrate 25 mg 02/01/19 09:00 02/02/19 10:42 Lopressor Tab PO 25 mg BID VAL Administration Nitroglycerin 1 tab 02/01/19 00:47 Nitrostat Sl 0.4mg Tab SL Q5M PRN Chest Pain Nf- (Insulin 45 unit 02/01/19 09:00 02/02/19 13:03 Degludec [Tresiba SUBCUT Not Given Flextouch U-100]) BID VAL Pantoprazole Sodium 40 mg 02/02/19 07:00 02/02/19 10:41 Protonix PO 40 mg AC BK VAL Administration Pravastatin Sodium 80 mg 02/01/19 09:00 02/02/19 10:40 Pravachol PO 80 mg DAILY VAL Administration 8. Time, care, counseling and coordination of care for this discharge is greater than 30 minutes.e Exam - Vitals Vital Signs: Vital Signs Temperature 98.5 F Temperature Source Temporal Artery Scan Pulse Rate [Pulse Oximeter] 85 Pulse Rate 72 Respiratory Rate 19 Blood Pressure [Right Arm] 130/63 Blood Pressure 165/96 Pulse Ox 92 Oxygen Flow Rate 1 Oxygen Delivery Method Nasal Cannula Height 5 ft 5 in Weight 197 lb 8 oz - General General Appearance: No Acute Distress, Cooperative - Eye Eye Exam: POSITIVE: No Scleral Icterus - ENT ENT Exam: POSITIVE: Mucous Membranes Moist - Neck Neck Exam: JVP is not Raised - Respiratory Respiratory Exam: POSITIVE: Clear to Auscultation - Bilaterally, Breathing Non Labored - Cardiovascular Cardiovascular Exam: POSITIVE: RRR, No Murmur, No Clicks, No Gallops, No Rubs, No JVD - GI/Abdominal GI/Abdominal Exam: POSITIVE: Normal Bowel Sounds, Non Tender, Non Distended, Soft - Extremities Extremities Exam: POSITIVE: No Clubbing Present, No Edema Present, No Cyanosis Present - Neurological Neurological Exam: POSITIVE: Alert, Oriented x 3, No Facial Droop, Speech Intact / Clear, Moves All Extremities Equally Data Peritnent Studies: 02/01/19 02/01/19 02/01/19 00:58 04:55 10:30 Sodium Potassium Chloride Carbon Dioxide Anion Gap BUN Creatinine Estimated GFR BUN/Creatinine Ratio Glucose Calculated Osmolality Calcium Total Bilirubin AST ALT Alkaline Phosphatase Ammonia Troponin I < 0.012 < 0.012 Total Protein Albumin Globulin Albumin/Globulin Ratio Triglycerides Cholesterol LDL Cholesterol, Calc VLDL Cholesterol HDL Cholesterol Cholesterol/HDL Ratio TSH Free T4 Ur Culture Indicated? Culture set 02/01/19 02/01/19 02/02/19 16:30 18:38 05:58 Sodium 135 Potassium 4.9 Chloride 105 Carbon Dioxide 25 Anion Gap 5 BUN 42 H Creatinine 1.4 H Estimated GFR 37 BUN/Creatinine Ratio 30.00 H Glucose 96 Calculated Osmolality 290.0 Calcium 9.0 Total Bilirubin 0.2 L AST 15 ALT 16 D Alkaline Phosphatase 65 Ammonia < 9 L Troponin I < 0.012 Total Protein 5.6 L Albumin 3.0 L Globulin 2.6 Albumin/Globulin Ratio 1.10 L Triglycerides 519 H Cholesterol 273 H LDL Cholesterol, Calc 135.200 VLDL Cholesterol 103 H HDL Cholesterol 34 L Cholesterol/HDL Ratio 8.02 H TSH Free T4 Ur Culture Indicated? 02/02/19 05:58 Sodium Potassium Chloride Carbon Dioxide Anion Gap BUN Creatinine Estimated GFR BUN/Creatinine Ratio Glucose Calculated Osmolality Calcium Total Bilirubin AST ALT Alkaline Phosphatase Ammonia Troponin I Total Protein Albumin Globulin Albumin/Globulin Ratio Triglycerides Cholesterol LDL Cholesterol, Calc VLDL Cholesterol HDL Cholesterol Cholesterol/HDL Ratio TSH 3.15 Free T4 1.01 Ur Culture Indicated? Procedures: [address] [facility]. [facility] [place] [address] PH: DD: [phone] FAX: [phone] ~DIAGNOSTIC IMAGING REPORT~ Patient: Yaquelin Jimenez : 1950 Sex: F Age: 68 Exam Name: [place] Myocardial Multi-Spect Exam Date: 02/01/19 Report # : [id number] CPT Code: 89787 EMR/MR #: [id number] Ordering: DELMIS GALLEGO Admiting: DELMIS GALLEGO MD. Primary: Steve Pitts MD Attending: DELMIS GALLEGO MD. ------ Signed 2 DAY LEXISCAN STRESS & REST MYOCARDIAL PERFUSION SCANS, 02/01/2019 12:47 AM : Clinical History: Chest pain Previous Exam: None at this facility. The patient was stressed by Dr. Cleve Macedo The standard Lexiscan protocol was used. Please see the Doctor's report. At the designated time, 35.5 mCi of 99Tc-sestimibi was injected IV. Stress gated tomog kathie were acquired within one hour of the injection. For the resting scans, 35.8 mCi was injected IV and resting gated tomograms were acquired in similar fashion. Stress scans were performed on February 01, 2019; the resting scans were performed on February 02, 2019. Quantitative and qualitative analyses were performed. Quantitative analysis was performed with the [facility] [id number] protocols. Very low dose limited CT scans of the chest are obtained through the level of the heart for attenuation correction of the gated stress and rest cardiac SPECT data. Non-attenuated and attenuated scans were processed for review, and the attenuated scans were used for final interpretation of this study. Review of the raw data images and quality assurance associate files indicate that these series of examinations are of excellent quality. Stress and rest left ventricular chamber sizes are normal. Stress and rest LVEF are 66 % and 66 %, respectively. There is a large moderate intensity reversible defect involving the anterior wall from base to apex in the distribution of the left anterior descending artery. There is some mild hypokinesis with normal ejection fraction. Transient ischemic dilatation ratio is 1.4, with a normal range up to 1.22 for patients stressed with the Pascual protocol and up to 1.33 for patients stressed with the Lexiscan protocol. The very low dose CT scans through the level of the heart demonstrate a few coronary artery calcifications. Motion artifact limits evaluation of the lungs. There is no mediastinal nor hilar lymphadenopathy. Reading: Large area of reversibility involving the anterior wall from base to apex most consistent with an ischemic defect involving the left anterior descending artery. Diffuse hypokinesis and normal ejection fraction. Dictated By: 02/02/19 1234 JEFFERY VARGAS MD. Signed By: 02/02/19 1248 JEFFERY VARGAS MD. Patient Problems - Patient Problem List (1) Unstable angina Current Visit: Yes Status: Acute Code(s): I20.0 - Unstable angina Category: Medical (2) Urinary tract infection Current Visit: Yes Status: Acute Code(s): N39.0 - Urinary tract infection, site not specified Qualifiers: Urinary tract infection type: acute cystitis Hematuria presence: without hematuria Qualified Code(s): N30.00 - Acute cystitis without hematuria Category: Medical (3) Chest pain Current Visit: Yes Status: Acute Code(s): R07.9 - Chest pain, unspecified Qualifiers: Chest pain type: precordial pain Qualified Code(s): R07.2 - Precordial pain Category: Medical (4) Diabetes mellitus type II, controlled Current Visit: Yes Status: Acute Code(s): E11.9 - Type 2 diabetes mellitus without complications Qualifiers: Diabetes mellitus nursing home insulin use: with terminal superintendent use Diabetes mellitus complication status: without complication Qualified Code(s): E11.9 - Type 2 diabetes mellitus without complications; Z79.4 - buttermaker continuous churn (current) use of insulin Category: Medical (5) GERD (gastroesophageal reflux disease) Current Visit: Yes Status: Chronic Comment: Continue Nexium Code(s): K21.9 - Gastro-esophageal reflux disease without esophagitis Qualifiers: Esophagitis presence: esophagitis presence not specified Qualified Code(s): K21.9 - Gastro-esophageal reflux disease without esophagitis Category: Medical (6) Hypercholesterolemia Current Visit: Yes Status: Acute Comment: Same medication Code(s): E78.0 - Pure hypercholesterolemia Category: Medical (7) Hypothyroidism Current Visit: Yes Status: Acute Comment: Same medication Code(s): E03.9 - Hypothyroidism, unspecified Qualifiers: Hypothyroidism type: unspecified Qualified Code(s): E03.9 - Hypothyroidism, unspecified; E03.9 - Hypothyroidism, unspecified; E03.9 - Hypothyroidism, unspecified Category: Medical (8) Obstructive sleep apnea syndrome Current Visit: Yes Status: Chronic Onset Date: 10/14/12 Code(s): G47.33 - Obstructive sleep apnea (adult) (pediatric) Category: Medical
[2019-02-02] MEDS: cefTRIAXone Inj 2 GM in Sodium Chloride 0.9% 100 ML IV SCH (16:12)
== END 2019-02-02 18:00 | disposition short-term general hospital (02) ==
LOC: ER 22:36 → MED/SURG 02-01 00:36 → INTOOBSV 02-01 00:37 → MED/SURG 02-01 00:37
PROVIDERS: ADMIT Internal Medicine; ATTEND Internal Medicine

== ENCOUNTER 2019-08-14 04:35 | Inpatient (IN) ==
[2019-08-14] MEDS ORDERED: KETOROLAC 15 MG/1 ML VIAL IVP ONE (04:52)
[2019-08-14] MEDS ORDERED: ONDANSETRON 4 MG/2 ML VIAL IVP ONE (04:52)
[2019-08-14] MEDS ORDERED: Sodium Chloride 0.9% 1,000 ML PRIMARY IV ONE (04:52)
[2019-08-14 05:20] LABS: BASOPHILS # (AUTO) 0.04 10*3/UL; BASOPHILS % (AUTO) 0.7 % (0-1); EOSINOPHILS # (AUTO) 0.44 10*3/UL; EOSINOPHILS % (AUTO) 7.7 % (0-8); Hematocrit [HCT] 33.5 % (37.0-47.0); Hemoglobin [HGB] 10.7 g/dL (12.0-16.0); LYMPHOCYTES # (AUTO) 1.31 10*3/uL; MEAN CORPUSCULAR HGB CONC 31.9 g/dL (33-37); MEAN CORPUSCULAR VOLUME 92.3 FL (81-99); MEAN PLATELET VOLUME 9.3 FL (7.4-12.2); MONOCYTES # (AUTO) 0.37 10*3/UL (0.3-0.8); MONOCYTES % (AUTO) 6.5 % (5-15); NEUTROPHILS # (AUTO) 3.51 10*3/UL; NEUTROPHILS % (AUTO) 61.8 % (50-80); RED BLOOD COUNT 3.63 10^6/uL (4.20-5.40)
[2019-08-14 05:23] LABS: VENOUS PCO2 41.5 mmHg (45-55); VENOUS PH 7.39 (7.32-7.42)
[2019-08-14 05:26] LABS: PLATELET MORPHOLOGY COMMENT NORMAL MORPHOLOGY (NORM); RBC MORPHOLOGY COMMENT NORMAL MORPHOLOGY (NORM); WBC MORPHOLOGY COMMENT NORMAL MORPHOLOGY (NORM)
[2019-08-14 05:36] LABS: BUN/CREATININE RATIO 34.61 (6-20); SERUM ALBUMIN 3.6 g/dL (3.5-4.8)
[2019-08-14] MEDS ORDERED: Insulin Sliding Scale Protocol SUBCUT PRN ×2 (09:06→15:56)
[2019-08-14] MEDS ORDERED: DEXTROSE 50%-WATER SYRINGE 50 ML SYRINGE IVP PRN ×2 (09:06→15:56)
[2019-08-14] MEDS ORDERED: DEXTROSE 31 GM GEL PO PRN ×2 (09:06→15:56)
[2019-08-14] MEDS ORDERED: Glucagon Inj Vial 1 MG/ML VIAL IM PRN ×2 (09:06→15:56)
[2019-08-14] MEDS ORDERED: Insulin Lispro Flexpen 300 UNIT/3 ML INSULN.PEN SUBCUT SCH (11:00)
[2019-08-14] MEDS ORDERED: FUROSEMIDE 40 MG TABLET PO PRN (14:34)
[2019-08-14] MEDS ORDERED: POLYETHYLENE GLYCOL 3350 17 GM POWDER PO PRN (14:34)
[2019-08-14] MEDS ORDERED: ONDANSETRON 4 MG/2 ML VIAL IVP PRN (14:34)
[2019-08-14] MEDS ORDERED: LIDOCAINE W/ SODIUM BICARB 0.5 ML SYR SUBD PRN (14:34)
[2019-08-14] MEDS ORDERED: ALBUTEROL SULFATE 2.5 MG/3 ML NEB PRN (14:34)
[2019-08-14] MEDS ORDERED: oxyCODONE-ACETAMINOPHEN 5-325 TAB PO PRN (14:34)
[2019-08-14] MEDS ORDERED: LIDOCAINE TOPICAL PRN (14:34)
[2019-08-14] MEDS ORDERED: CYCLOBENZAPRINE 10 MG TABLET PO PRN (15:00)
[2019-08-14] MEDS ORDERED: Sodium Chloride 0.9% 1,000 ML PRIMARY IV SCH (15:45)
[2019-08-14] MEDS: IPRATROPIUM/ALBUTEROL SULFATE 3 ML NEB NEB SCH ×2 (15:50→19:26)
[2019-08-14] MEDS: Insulin Lispro Flexpen 300 UNIT/3 ML INSULN.PEN SUBCUT SCH ×2 (16:23→21:26)
[2019-08-14] MEDS: HEPARIN 5000 UNIT/1 ML SUBCUT SCH ×2 (16:26→22:52)
[2019-08-14 19:21] LABS: BILIRUBIN,URINE NEGATIVE (NEG); CLARITY,URINE Slightly Cloudy (CLEAR); COLOR,URINE YELLOW (Y); GLUCOSE, URINE (UA) NEGATIVE (NEG); OCCULT BLOOD,URINE SMALL (NEG); PH,URINE 6.5 (5.0-8.5); PROTEIN,URINE 100 mg/dl (NEG); UROBILINOGEN,URINE 0.2 EU/dL (0.2)
[2019-08-14] MEDS: cefTRIAXone Inj 2 GM in Sodium Chloride 0.9% 100 ML IV SCH (19:22)
[2019-08-14 19:26] LABS: URINE SAMPLE TYPE CATH SPECIMEN
[2019-08-14 19:27] LABS: BACTERIA,URINE MANY
[2019-08-14] MEDS ORDERED: METRONIDAZOLE TOPICAL SCH (21:00)
[2019-08-14] MEDS ORDERED: INSULIN DEGLUDEC SUBCUT SCH (21:00)
[2019-08-14] MEDS: LISINOPRIL 20 MG TABLET PO SCH (21:23)
[2019-08-14] MEDS: CIPROFLOXACIN HCL/DEXAMETH 7.5 ML OTIC SUSP RIGHT EAR SCH (21:23)
[2019-08-14] MEDS: Metoprolol TARTRATE Tab 25 MG TAB PO SCH (21:23)
[2019-08-14] MEDS: PREGABALIN 100 MG CAPSULE PO SCH (21:25)
[2019-08-14] MEDS: Insulin Glargine SoloStar Inj 100 UNIT/ML INSULN.PEN SUBCUT SCH (21:26)
[2019-08-14] MEDS ORDERED: DULOXETINE 60 MG CAPSULE PO ONE (23:30)
[2019-08-14] MEDS: ACETAMINOPHEN 325 MG TABLET PO PRN (23:42)
[2019-08-15] MEDS: LEVOTHYROXINE 100 MCG TABLET PO SCH (04:39)
[2019-08-15 05:01] LABS: BASOPHILS # (AUTO) 0.03 10*3/UL; BASOPHILS % (AUTO) 0.5 % (0-1); EOSINOPHILS # (AUTO) 0.32 10*3/UL; EOSINOPHILS % (AUTO) 5.8 % (0-8); Hematocrit [HCT] 32.5 % (37.0-47.0); Hemoglobin [HGB] 9.9 g/dL (12.0-16.0); LYMPHOCYTES # (AUTO) 1.21 10*3/uL; MEAN CORPUSCULAR HGB CONC 30.5 g/dL (33-37); MEAN CORPUSCULAR VOLUME 93.7 FL (81-99); MEAN PLATELET VOLUME 9.4 FL (7.4-12.2); MONOCYTES # (AUTO) 0.42 10*3/UL (0.3-0.8); MONOCYTES % (AUTO) 7.6 % (5-15); NEUTROPHILS # (AUTO) 3.52 10*3/UL; NEUTROPHILS % (AUTO) 63.9 % (50-80); RED BLOOD COUNT 3.47 10^6/uL (4.20-5.40)
[2019-08-15 05:05] LABS: PLATELET MORPHOLOGY COMMENT NORMAL MORPHOLOGY (NORM); RBC MORPHOLOGY COMMENT NORMAL MORPHOLOGY (NORM); WBC MORPHOLOGY COMMENT NORMAL MORPHOLOGY (NORM)
[2019-08-15 05:10] LABS: BUN/CREATININE RATIO 34.61 (6-20)
[2019-08-15] MEDS: IPRATROPIUM/ALBUTEROL SULFATE 3 ML NEB NEB SCH ×4 (06:39→19:09)
[2019-08-15] MEDS: HEPARIN 5000 UNIT/1 ML SUBCUT SCH ×3 (06:48→22:59)
[2019-08-15] MEDS: Esomeprazole DR 20mg Capsule PO SCH (06:48)
[2019-08-15] MEDS: Insulin Lispro Flexpen 300 UNIT/3 ML INSULN.PEN SUBCUT SCH ×4 (09:03→21:02)
[2019-08-15] MEDS: DULOXETINE 60 MG CAPSULE PO SCH (09:21)
[2019-08-15] MEDS: LISINOPRIL 20 MG TABLET PO SCH ×2 (09:21→20:53)
[2019-08-15] MEDS: predniSONE Tab 20 MG TAB PO SCH (09:21)
[2019-08-15] MEDS: Metoprolol TARTRATE Tab 25 MG TAB PO SCH ×2 (09:22→20:53)
[2019-08-15] MEDS: ISOSORBIDE MONONITRATE 30 MG SR 24H TABLET PO SCH (09:22)
[2019-08-15] MEDS: EZETIMIBE 10 MG TABLET PO SCH (09:22)
[2019-08-15] MEDS: PREGABALIN 100 MG CAPSULE PO SCH ×2 (09:22→20:53)
[2019-08-15] MEDS: CIPROFLOXACIN HCL/DEXAMETH 7.5 ML OTIC SUSP RIGHT EAR SCH ×2 (09:23→20:51)
[2019-08-15] MEDS: ASPIRIN EC 81 MG TABLET PO SCH (09:23)
[2019-08-15] MEDS: Insulin Glargine SoloStar Inj 100 UNIT/ML INSULN.PEN SUBCUT SCH ×2 (09:24→21:04)
[2019-08-15] MEDS: cefTRIAXone Inj 2 GM in Sodium Chloride 0.9% 100 ML IV SCH (16:45)
[2019-08-15] MEDS ORDERED: Influenza 19-20 Vaccine (6mo+) 60 MCG/0.5 ML SYRINGE IM ONE (16:54)
[2019-08-15] MEDS ORDERED: LIDOCAINE HCL 2 % 10 ML JELLY URO-JECT TOPICAL PRN (18:21)
[2019-08-15] MEDS: ACETAMINOPHEN 325 MG TABLET PO PRN (20:52)
[2019-08-15] MEDS: Pravastatin 80mg Tab PO SCH (20:53)
[2019-08-16] MEDS: LEVOTHYROXINE 100 MCG TABLET PO SCH (05:41)
[2019-08-16] MEDS: HEPARIN 5000 UNIT/1 ML SUBCUT SCH ×3 (06:53→23:31)
[2019-08-16] MEDS: Esomeprazole DR 20mg Capsule PO SCH (06:53)
[2019-08-16] MEDS: Insulin Lispro Flexpen 300 UNIT/3 ML INSULN.PEN SUBCUT SCH ×4 (06:56→20:42)
[2019-08-16] MEDS: IPRATROPIUM/ALBUTEROL SULFATE 3 ML NEB NEB SCH ×4 (07:04→18:47)
[2019-08-16] MEDS: Insulin Glargine SoloStar Inj 100 UNIT/ML INSULN.PEN SUBCUT SCH (08:57)
[2019-08-16] MEDS: DULOXETINE 60 MG CAPSULE PO SCH (08:57)
[2019-08-16] MEDS: CIPROFLOXACIN HCL/DEXAMETH 7.5 ML OTIC SUSP RIGHT EAR SCH ×2 (08:57→20:41)
[2019-08-16] MEDS: LISINOPRIL 20 MG TABLET PO SCH ×2 (08:58→20:42)
[2019-08-16] MEDS: PREGABALIN 100 MG CAPSULE PO SCH ×2 (08:58→20:41)
[2019-08-16] MEDS: EZETIMIBE 10 MG TABLET PO SCH (08:58)
[2019-08-16] MEDS: ASPIRIN EC 81 MG TABLET PO SCH (08:58)
[2019-08-16] MEDS: predniSONE Tab 20 MG TAB PO SCH (08:58)
[2019-08-16] MEDS: Metoprolol TARTRATE Tab 25 MG TAB PO SCH ×2 (08:58→20:42)
[2019-08-16] MEDS: ISOSORBIDE MONONITRATE 30 MG SR 24H TABLET PO SCH (08:58)
[2019-08-16 11:25] LABS: BASOPHILS # (AUTO) 0.02 10*3/UL; BASOPHILS % (AUTO) 0.2 % (0-1); EOSINOPHILS # (AUTO) 0.26 10*3/UL; EOSINOPHILS % (AUTO) 2.9 % (0-8); Hematocrit [HCT] 31.6 % (37.0-47.0); LYMPHOCYTES # (AUTO) 1.18 10*3/uL; MEAN CORPUSCULAR HGB CONC 31.6 g/dL (33-37); MEAN CORPUSCULAR VOLUME 92.4 FL (81-99); MEAN PLATELET VOLUME 9.4 FL (7.4-12.2); MONOCYTES # (AUTO) 0.53 10*3/UL (0.3-0.8); MONOCYTES % (AUTO) 5.9 % (5-15); NEUTROPHILS # (AUTO) 6.99 10*3/UL; NEUTROPHILS % (AUTO) 77.7 % (50-80); RED BLOOD COUNT 3.42 10^6/uL (4.20-5.40)
[2019-08-16 11:28] LABS: PLATELET MORPHOLOGY COMMENT NORMAL MORPHOLOGY (NORM); RBC MORPHOLOGY COMMENT NORMAL MORPHOLOGY (NORM); WBC MORPHOLOGY COMMENT NORMAL MORPHOLOGY (NORM)
[2019-08-16 11:30] LABS: BUN/CREATININE RATIO 33.07 (6-20)
[2019-08-16] MEDS: cefTRIAXone Inj 2 GM in Sodium Chloride 0.9% 100 ML IV SCH (16:36)
[2019-08-16] MEDS: ACETAMINOPHEN 325 MG TABLET PO PRN ×2 (16:44→23:35)
[2019-08-16] MEDS: Pravastatin 80mg Tab PO SCH (20:41)
[2019-08-16] MEDS ORDERED: Insulin Glargine SoloStar Inj 100 UNIT/ML INSULN.PEN SUBCUT SCH (21:00)
[2019-08-17] MEDS: LEVOTHYROXINE 100 MCG TABLET PO SCH (05:24)
[2019-08-17] MEDS: IPRATROPIUM/ALBUTEROL SULFATE 3 ML NEB NEB SCH ×3 (06:35→14:35)
[2019-08-17] MEDS ORDERED: Insulin Glargine SoloStar Inj 100 UNIT/ML INSULN.PEN SUBCUT SCH (07:00)
[2019-08-17] MEDS: Insulin Lispro Flexpen 300 UNIT/3 ML INSULN.PEN SUBCUT SCH ×2 (08:00→12:14)
[2019-08-17] MEDS: Esomeprazole DR 20mg Capsule PO SCH (09:02)
[2019-08-17] MEDS: HEPARIN 5000 UNIT/1 ML SUBCUT SCH (09:03)
[2019-08-17] MEDS: CIPROFLOXACIN HCL/DEXAMETH 7.5 ML OTIC SUSP RIGHT EAR SCH (10:04)
[2019-08-17] MEDS: ASPIRIN EC 81 MG TABLET PO SCH (10:05)
[2019-08-17] MEDS: DULOXETINE 60 MG CAPSULE PO SCH (10:05)
[2019-08-17] MEDS: predniSONE Tab 20 MG TAB PO SCH (10:05)
[2019-08-17] MEDS: EZETIMIBE 10 MG TABLET PO SCH (10:07)
[2019-08-17] MEDS: ISOSORBIDE MONONITRATE 30 MG SR 24H TABLET PO SCH (10:07)
[2019-08-17] MEDS: PREGABALIN 100 MG CAPSULE PO SCH (10:07)
[2019-08-17] MEDS: Metoprolol TARTRATE Tab 25 MG TAB PO SCH (10:08)
[2019-08-17] MEDS: LISINOPRIL 20 MG TABLET PO SCH (10:08)
[2019-08-17 10:38] VITALS: RESP 16
[2019-08-17 11:38] VITALS: BP 131/62; TEMP 98.2
[2019-08-17 14:39] VITALS: O2SAT 81
[2019-08-17] MEDS ORDERED: CEFDINIR 300 MG CAPSULE PO SCH (21:00)
== END 2019-08-17 14:45 | disposition swing bed (61) | DRG 552 ==
LOC: ER 04:35 → MED/SURG 14:13
PROVIDERS: ADMIT Family Medicine; ATTEND Family Medicine